=== PATIENT | male | born 1980 | race African-American/Black ===

== ENCOUNTER 2017-12-11 03:36 | Inpatient (IN) ==
[2017-12-11] MEDS ORDERED: ALUM/MAG/SIMETH/LIDO VISC 1:1 30 ML BOTTLE PO ONE (05:36)
[2017-12-11] MEDS ORDERED: ALUM/MAG/SIMETH/LIDO VISC 1:1 30 ML BOTTLE PO STA (05:39)
[2017-12-11 05:40] LABS: Basophils % 0.1 % (0.0-0.8); Eosinophils % 0.1 % (0.00-10.9); Hematocrit 39.9 VOL% (42.0-52.0); Immature Granulocytes % 0.5 %; Immature Granulocytes Absolute 0.05 #; Lymphocytes # 1.9 10*3/uL (1.4-4.0); Lymphocytes % 17.1 % (21.2-54.2); Mean Corpuscular HGB Conc 32.6 GM/DL (32-36); Mean Corpuscular Hemoglobin 30 PG (27-34); Mean Corpuscular Volume 92.8 FL (87-102); Mean Platelet Volume 9.9 FL (9.6-12.0); Monocytes # 1.1 10*3/uL (0.11-0.8); Monocytes % 9.7 % (1.7-12.7); Neutrophils % 72.5 % (38.7-73.9); Platelet Count 253 T/CUMM (130-400); Red Cell Distribution Width 13.4 % (9.3-17.3)
[2017-12-11 05:55] LABS: Apearance,Urine Slightly Hazy (Clear); Bacteria,Urine Occasional /HPF (Few); Bilirubin,Urine Negative (Negative); Blood, Urine Negative (Negative); Glucose,Urine (UA) Negative (Negative); Hyaline Casts,Urine 81 /LPF (0-3); Ketones,Urine 5 mg/dL (Negative); Mucus,Urine Many /LPF (Occasional); Nitrite,Urine Negative (Negative); Protein,Urine 100 MG/DL; RBC,Urine 5 /HPF (0-4); Urine Color Yellow (Yellow); Urine Specific Gravity 1.025 (1.001-1.035); WBC,Urine 14 /HPF (0-6)
[2017-12-11 06:03] LABS: Albumin 3.2 G/DL (3.4-5.0); Bilirubin,Total 0.6 MG/DL (0.2-1.0); Calcium 8.7 MG/DL (8.5-10.1); Osmolality,Calculated 279.4 MOS/KG (273-304); Potassium 4.6 MMOL/L (3.5-5.1); Total Protein 6.4 G/DL (6.4-8.3); Troponin I Only 0.701 NG/ML (0.00-0.045)
[2017-12-11] MEDS ORDERED: SODIUM CHLORIDE 0.9% 1,000 ML IV SCH (08:30)
[2017-12-11] MEDS ORDERED: chlordiazePOXIDE 25 MG CAPSULE PO PRN (09:09)
[2017-12-11 09:13] LABS: Barbiturates Screen,Urine Negative (Negative); Benzodiazepines Screen,Urine Negative (Negative); Cannabinoid Screen,Urine Negative (Negative); Opiate Screen,Urine Negative (Negative); Phencyclidine Screen,Urine Negative (Negative)
[2017-12-11 09:43] LABS: Hepatitis A Ab IgM Quant 0.09 Index; Hepatitis A Ab IgM Result Negative (Negative); Hepatitis B Core IgM Quant 0.18 Index; Hepatitis B Core IgM Result Negative (Negative); Hepatitis B Surface Ag Quant < 0.10 Index; Hepatitis B Surface Ag Result Negative (Negative); Hepatitis C Virus Ab Quant 0.04 Index; Hepatitis C Virus Ab Result Negative (Negative)
[2017-12-11] MEDS ORDERED: PANTOPRAZOLE 40 MG TABLET PO ONE (12:07)
[2017-12-11] MEDS: PANTOPRAZOLE 40 MG TABLET PO SCH (12:08)
[2017-12-11] MEDS: THIAMINE 100 MG TABLET PO SCH (12:09)
[2017-12-11] MEDS: FOLIC ACID 1 MG TABLET PO SCH (12:09)
[2017-12-11] MEDS: MULTIVITAMIN (CENTRUM) TABLET PO SCH (12:10)
[2017-12-11 13:17] LABS: Troponin I Only 0.797 NG/ML (0.00-0.045)
[2017-12-11] MEDS ORDERED: MAGNESIUM SULF RIDER 2 GM in PREMIX 1 EACH IV PRN (17:55)
[2017-12-11] MEDS ORDERED: POTASSIUM CHLORIDE RIDER 10 MEQ in PREMIX 1 EACH IV PRN (17:55)
[2017-12-11] MEDS ORDERED: DIAZEPAM 5 MG TABLET PO ONE (17:55)
[2017-12-11] MEDS ORDERED: diphenhydrAMINE CAP 25 MG CAPSULE PO ONE (17:55)
[2017-12-11] MEDS: ASPIRIN CHEW 81 MG TABLET PO SCH (18:15)
[2017-12-11] MEDS: FUROSEMIDE 40 MG/4 ML VIAL IV SCH (18:15)
[2017-12-11 19:22] LABS: Troponin I Only 0.605 NG/ML (0.00-0.045)
[2017-12-11] MEDS: METOPROLOL TARTRATE 25 MG TABLET PO SCH (20:36)
[2017-12-11] MEDS: chlordiazePOXIDE 25 MG CAPSULE PO SCH (20:36)
[2017-12-11] MEDS: ALUMINUM/MAGNES/SIMETH MAX STR 30 ML UDCUP PO PRN (23:36)
[2017-12-11] MEDS: MORPHINE 2 MG/1 ML SYRINGE IV PRN (23:37)
[2017-12-12] MEDS ORDERED: diphenhydrAMINE CAP 25 MG CAPSULE PO ONE (06:00)
[2017-12-12] MEDS ORDERED: DIAZEPAM 5 MG TABLET PO ONE (06:00)
[2017-12-12 06:30] LABS: Basophils % 0.1 % (0.0-0.8); Eosinophils % 0.3 % (0.00-10.9); Hemoglobin 12.4 GM/DL (14.0-18.0); Immature Granulocytes % 0.3 %; Immature Granulocytes Absolute 0.02 #; Lymphocytes # 1.7 10*3/uL (1.4-4.0); Lymphocytes % 24.4 % (21.2-54.2); Mean Corpuscular HGB Conc 32.6 GM/DL (32-36); Mean Corpuscular Hemoglobin 30 PG (27-34); Mean Corpuscular Volume 91.1 FL (87-102); Mean Platelet Volume 10.5 FL (9.6-12.0); Monocytes # 0.8 10*3/uL (0.11-0.8); Monocytes % 11.2 % (1.7-12.7); Neutrophils # 4.4 10*3/uL (1.4-7.4); Neutrophils % 63.7 % (38.7-73.9); Platelet Count 241 T/CUMM (130-400); Red Blood Count 4.17 MC/CUMM (3.8-5.5); Red Cell Distribution Width 13.5 % (9.3-17.3); White Blood Count 6.9 T/CUMM (4-12)
[2017-12-12 07:01] LABS: Calcium 8.7 MG/DL (8.5-10.1); Osmolality,Calculated 278.5 MOS/KG (273-304); Potassium 4.1 MMOL/L (3.5-5.1)
[2017-12-12] MEDS ORDERED: HEPARIN/NACL 0.9% 2 UNITS/ML 2,000 ML IV ONE (08:24)
[2017-12-12] MEDS ORDERED: LIDOCAINE 1% 20 ML VIAL ONE (08:24)
[2017-12-12] MEDS ORDERED: fentaNYL 100 MCG/2 ML VIAL ONE (08:45)
[2017-12-12] MEDS ORDERED: VERAPAMIL 5 MG/2 ML VIAL ONE (08:45)
[2017-12-12] MEDS ORDERED: NITROGLYCERIN DRIP 50 MG/250 ML BOTTLE IV ONE (08:45)
[2017-12-12] MEDS ORDERED: MIDAZOLAM 2 MG/2 ML VIAL ONE (08:45)
[2017-12-12] MEDS ORDERED: ENOXAPARIN 60 MG/0.6 ML SYRINGE ONE (09:00)
[2017-12-12] MEDS: ASPIRIN CHEW 81 MG TABLET PO SCH (13:28)
[2017-12-12] MEDS: FUROSEMIDE 40 MG/4 ML VIAL IV SCH ×2 (13:28→15:28)
[2017-12-12] MEDS: MULTIVITAMIN (CENTRUM) TABLET PO SCH (13:29)
[2017-12-12] MEDS: chlordiazePOXIDE 25 MG CAPSULE PO SCH ×3 (13:30→21:41)
[2017-12-12] MEDS: FOLIC ACID 1 MG TABLET PO SCH (13:30)
[2017-12-12] MEDS: METOPROLOL TARTRATE 25 MG TABLET PO SCH ×2 (13:31→21:40)
[2017-12-12] MEDS: PANTOPRAZOLE 40 MG TABLET PO SCH (13:31)
[2017-12-12] MEDS: THIAMINE 100 MG TABLET PO SCH (13:31)
[2017-12-12] MEDS: ONDANSETRON 4 MG/2 ML VIAL IV PRN (15:29)
[2017-12-12] MEDS ORDERED: ALBUTEROL 2.5 MG/3 ML NEB RESP TX PRN (23:25)
[2017-12-13 05:19] LABS: Basophils % 0.3 % (0.0-0.8); Eosinophils % 0.2 % (0.00-10.9); Hematocrit 39.5 VOL% (42.0-52.0); Hemoglobin 12.6 GM/DL (14.0-18.0); Immature Granulocytes % 0.6 %; Immature Granulocytes Absolute 0.05 #; Lymphocytes # 2.2 10*3/uL (1.4-4.0); Lymphocytes % 25.6 % (21.2-54.2); Mean Corpuscular HGB Conc 31.9 GM/DL (32-36); Mean Corpuscular Hemoglobin 29 PG (27-34); Mean Corpuscular Volume 91.4 FL (87-102); Mean Platelet Volume 10.4 FL (9.6-12.0); Monocytes % 11.5 % (1.7-12.7); NRBC # 0.05 10*3/uL; Neutrophils # 5.4 10*3/uL (1.4-7.4); Neutrophils % 61.8 % (38.7-73.9); Platelet Count 234 T/CUMM (130-400); Red Blood Count 4.32 MC/CUMM (3.8-5.5); Red Cell Distribution Width 13.2 % (9.3-17.3); White Blood Count 8.8 T/CUMM (4-12)
[2017-12-13 05:44] LABS: Calcium 8.5 MG/DL (8.5-10.1); Osmolality,Calculated 273.8 MOS/KG (273-304); Potassium 4.2 MMOL/L (3.5-5.1)
[2017-12-13] MEDS: MULTIVITAMIN (CENTRUM) TABLET PO SCH (09:20)
[2017-12-13] MEDS: THIAMINE 100 MG TABLET PO SCH (09:21)
[2017-12-13] MEDS: METOPROLOL TARTRATE 25 MG TABLET PO SCH (09:21)
[2017-12-13] MEDS: FOLIC ACID 1 MG TABLET PO SCH (09:22)
[2017-12-13] MEDS: chlordiazePOXIDE 25 MG CAPSULE PO SCH (09:22)
[2017-12-13] MEDS: PANTOPRAZOLE 40 MG TABLET PO SCH (09:22)
[2017-12-13] MEDS: ASPIRIN CHEW 81 MG TABLET PO SCH (09:23)
[2017-12-13] MEDS: FUROSEMIDE 40 MG/4 ML VIAL IV SCH ×2 (09:24→16:11)
[2017-12-13] MEDS ORDERED: chlorproMAZINE 25 MG TABLET PO SCH (12:00)
[2017-12-13] MEDS: ONDANSETRON 4 MG/2 ML VIAL IV PRN (14:32)
[2017-12-13] MEDS: ASPIRIN CHEW 81 MG TABLET PO ONE ×2 (14:48→15:17)
[2017-12-13] MEDS ORDERED: SPIRONOLACTONE 25 MG TABLET PO SCH (15:00)
[2017-12-13] MEDS ORDERED: LISINOPRIL 2.5 MG TABLET PO SCH (15:00)
[2017-12-13] MEDS ORDERED: MORPHINE 2 MG/1 ML SYRINGE IV STA (15:15)
[2017-12-13 15:56] LABS: ABG Base Excess -1.5 MMOL/L (-2.5-2.5); ABG HCO3 21.8 MMOL/L (20-26); ABG Oxygen Saturation 98.6 % (95-100); ABG PCO2 32.8 MM HG (35-48); ABG PH 7.441 (7.35-7.45); ABG TCO2 22.8 MMOL/L (23-27); Allen Test Positive
[2017-12-13] MEDS: LORazepam 2 MG/1 ML VIAL IV PRN ×3 (16:00→23:31)
[2017-12-13] MEDS: chlordiazePOXIDE 10 MG CAPSULE PO SCH ×2 (16:11→20:47)
[2017-12-13] MEDS: METOPROLOL SUCCINATE XL 25 MG TABLET PO SCH ×2 (16:38→20:49)
[2017-12-13] MEDS: MORPHINE 2 MG/1 ML SYRINGE IV PRN (20:47)
[2017-12-14] MEDS: LORazepam 2 MG/1 ML VIAL IV PRN ×6 (04:44→21:00)
[2017-12-14] MEDS ORDERED: DIAZEPAM 10 MG/2 ML SYRINGE IV PRN (05:05)
[2017-12-14] MEDS: HALOPERIDOL 5 MG/ML AMP IV PRN ×2 (05:57→14:58)
[2017-12-14 05:59] LABS: Basophils % 0.3 % (0.0-0.8); Eosinophils % 0.2 % (0.00-10.9); Hematocrit 40.8 VOL% (42.0-52.0); Hemoglobin 13.1 GM/DL (14.0-18.0); Immature Granulocytes % 0.6 %; Immature Granulocytes Absolute 0.07 #; Lymphocytes # 1.4 10*3/uL (1.4-4.0); Lymphocytes % 11.5 % (21.2-54.2); Mean Corpuscular HGB Conc 32.1 GM/DL (32-36); Mean Corpuscular Hemoglobin 30 PG (27-34); Mean Corpuscular Volume 92.5 FL (87-102); Mean Platelet Volume 10.6 FL (9.6-12.0); Monocytes # 1.5 10*3/uL (0.11-0.8); Monocytes % 12.2 % (1.7-12.7); NRBC # 0.08 10*3/uL; Neutrophils % 75.2 % (38.7-73.9); Platelet Count 221 T/CUMM (130-400); Red Blood Count 4.41 MC/CUMM (3.8-5.5); Red Cell Distribution Width 13.2 % (9.3-17.3)
[2017-12-14 06:11] LABS: Calcium 8.3 MG/DL (8.5-10.1); Potassium 4.4 MMOL/L (3.5-5.1)
[2017-12-14 06:21] LABS: Albumin 2.9 G/DL (3.4-5.0); Bilirubin,Direct 0.77 MG/DL (0.0-0.20); Bilirubin,Indirect 0.9 MG/DL (0.0-1.0); Bilirubin,Total 1.7 MG/DL (0.2-1.0); Total Protein 5.9 G/DL (6.4-8.3)
[2017-12-14] MEDS: FUROSEMIDE 40 MG/4 ML VIAL IV SCH ×3 (08:21→15:06)
[2017-12-14] MEDS: THIAMINE 100 MG TABLET PO SCH (08:21)
[2017-12-14] MEDS: PANTOPRAZOLE 40 MG TABLET PO SCH (08:21)
[2017-12-14] MEDS: FOLIC ACID 1 MG TABLET PO SCH (08:21)
[2017-12-14] MEDS: METOPROLOL SUCCINATE XL 25 MG TABLET PO SCH ×2 (08:21→21:45)
[2017-12-14] MEDS: MULTIVITAMIN (CENTRUM) TABLET PO SCH (08:21)
[2017-12-14] MEDS: chlordiazePOXIDE 25 MG CAPSULE PO SCH ×3 (08:24→21:45)
[2017-12-14] MEDS: LACTULOSE 20 GM/30 ML UDCUP PO SCH ×2 (11:20→17:00)
[2017-12-14] MEDS ORDERED: ETOMIDATE 20 MG/10 ML VIAL IV ONE ×2 (19:30)
[2017-12-14] MEDS ORDERED: VECURONIUM 10 MG VIAL IV ONE ×2 (19:30)
[2017-12-14] MEDS ORDERED: PROPOFOL 200 MG/20 ML VIAL IV ONE (19:38)
[2017-12-14] MEDS ORDERED: ALBUTEROL/IPRATROPIUM 3 ML NEB RESP TX PRN (19:58)
[2017-12-14] MEDS: MIDAZOLAM 100 MG in SODIUM CHLORIDE 0.9% 80 ML IV SCH (20:55)
[2017-12-14] MEDS: fentaNYL INJ 1,250 MCG in SODIUM CHLORIDE 0.9% 225 ML IV SCH (20:55)
[2017-12-14] MEDS ORDERED: THIAMINE INJ 100 MG, FOLIC ACID INJ 1 MG, MULTIVITAMIN INJ 10 ML in SODIUM CHLORIDE 0.9... IV ONE (21:00)
[2017-12-14 21:50] LABS: Lactic Acid 1.4 MMOL/L (0.4-2.0)
[2017-12-14 21:58] LABS: Basophils % 0.1 % (0.0-0.8); Eosinophils # 0.1 10*3/uL (0.0-0.87); Eosinophils % 0.5 % (0.00-10.9); Hematocrit 36.9 VOL% (42.0-52.0); Hemoglobin 12.1 GM/DL (14.0-18.0); Immature Granulocytes % 0.5 %; Immature Granulocytes Absolute 0.06 #; Lymphocytes # 1.4 10*3/uL (1.4-4.0); Lymphocytes % 13.1 % (21.2-54.2); Mean Corpuscular HGB Conc 32.8 GM/DL (32-36); Mean Corpuscular Hemoglobin 30 PG (27-34); Mean Corpuscular Volume 90.9 FL (87-102); Mean Platelet Volume 10.1 FL (9.6-12.0); Monocytes # 1.3 10*3/uL (0.11-0.8); Monocytes % 12.2 % (1.7-12.7); NRBC # 0.05 10*3/uL; Neutrophils # 8.1 10*3/uL (1.4-7.4); Neutrophils % 73.6 % (38.7-73.9); Platelet Count 169 T/CUMM (130-400); Red Blood Count 4.06 MC/CUMM (3.8-5.5); Red Cell Distribution Width 13.4 % (9.3-17.3)
[2017-12-14] MEDS: CIPROFLOXACIN INJ 400 MG in PREMIX 1 EACH IV SCH (22:33)
[2017-12-14] MEDS: cefTRIAXone 1,000 MG in SYRINGE 1 EACH IV SCH (22:33)
[2017-12-14] MEDS: PROPOFOL 1,000 MG/100 ML BOTTLE IV SCH (22:34)
[2017-12-14 22:35] LABS: Osmolality,Calculated 276.8 MOS/KG (273-304); Potassium 4.4 MMOL/L (3.5-5.1)
[2017-12-14 23:24] LABS: Apearance,Urine Slightly Hazy (Clear); Bilirubin,Urine Negative (Negative); Blood, Urine Moderate mg/dL (Negative); Glucose,Urine (UA) Negative (Negative); Hyaline Casts,Urine 31 /LPF (0-3); Ketones,Urine Negative (Negative); Mucus,Urine Occasional /LPF (Occasional); Nitrite,Urine Negative (Negative); Protein,Urine 100 MG/DL; RBC,Urine 26 /HPF (0-4); Squamous Epithelial Cell,Urine Occasional /HPF (0-10); Urine Color Amber (Yellow); Urine Specific Gravity 1.015 (1.001-1.035); WBC,Urine 10 /HPF (0-6)
[2017-12-15] MEDS: LACTULOSE 20 GM/30 ML UDCUP PO SCH ×5 (00:14→23:30)
[2017-12-15 01:32] LABS: Pt O2 Delivery Device Ventilator
[2017-12-15 01:33] LABS: ABG Base Excess 2.6 MMOL/L (-2.5-2.5); ABG HCO3 26.8 MMOL/L (20-26); ABG PCO2 32.9 MM HG (35-48); ABG PH 7.496 (7.35-7.45); ABG TCO2 22.4 MMOL/L (23-27)
[2017-12-15] MEDS: ALBUTEROL/IPRATROPIUM 3 ML NEB RESP TX SCH ×4 (01:36→19:20)
[2017-12-15] MEDS: fentaNYL INJ 1,250 MCG in SODIUM CHLORIDE 0.9% 225 ML IV SCH ×2 (02:46→20:35)
[2017-12-15 04:26] LABS: ABG Base Excess 1.5 MMOL/L (-2.5-2.5); ABG HCO3 25.8 MMOL/L (20-26); ABG TCO2 23.4 MMOL/L (23-27); Allen Test Positive; Pt O2 Delivery Device Ventilator
[2017-12-15 04:28] LABS: ABG Oxygen Saturation 99.5 % (95-100)
[2017-12-15 05:15] LABS: Basophils % 0.3 % (0.0-0.8); Eosinophils # 0.2 10*3/uL (0.0-0.87); Eosinophils % 1.5 % (0.00-10.9); Hematocrit 37.8 VOL% (42.0-52.0); Hemoglobin 12.4 GM/DL (14.0-18.0); Immature Granulocytes % 0.5 %; Immature Granulocytes Absolute 0.06 #; Lymphocytes # 1.6 10*3/uL (1.4-4.0); Lymphocytes % 14.2 % (21.2-54.2); Mean Corpuscular HGB Conc 32.8 GM/DL (32-36); Mean Corpuscular Hemoglobin 30 PG (27-34); Mean Corpuscular Volume 91.1 FL (87-102); Mean Platelet Volume 10.4 FL (9.6-12.0); Monocytes # 1.4 10*3/uL (0.11-0.8); Monocytes % 12.2 % (1.7-12.7); Neutrophils # 7.9 10*3/uL (1.4-7.4); Neutrophils % 71.3 % (38.7-73.9); Platelet Count 170 T/CUMM (130-400); Red Blood Count 4.15 MC/CUMM (3.8-5.5); Red Cell Distribution Width 13.4 % (9.3-17.3)
[2017-12-15 06:10] LABS: Albumin 2.5 G/DL (3.4-5.0); Bilirubin,Direct 0.71 MG/DL (0.0-0.20); Bilirubin,Indirect 0.9 MG/DL (0.0-1.0); Bilirubin,Total 1.6 MG/DL (0.2-1.0); Calcium 7.4 MG/DL (8.5-10.1); Osmolality,Calculated 277.5 MOS/KG (273-304); Potassium 4.4 MMOL/L (3.5-5.1)
[2017-12-15] MEDS: MIDAZOLAM 100 MG in SODIUM CHLORIDE 0.9% 80 ML IV SCH ×3 (06:31→20:35)
[2017-12-15] MEDS ORDERED: FUROSEMIDE 20 MG/2 ML VIAL ONE (09:23)
[2017-12-15] MEDS: cefTRIAXone 1,000 MG in SYRINGE 1 EACH IV SCH ×2 (09:33→20:24)
[2017-12-15] MEDS: FUROSEMIDE 40 MG/4 ML VIAL IV SCH ×2 (09:34→15:13)
[2017-12-15] MEDS: METOPROLOL SUCCINATE XL 25 MG TABLET PO SCH ×2 (09:35→20:13)
[2017-12-15] MEDS: PANTOPRAZOLE 40 MG TABLET PO SCH (09:35)
[2017-12-15] MEDS: chlordiazePOXIDE 25 MG CAPSULE PO SCH ×3 (09:35→20:25)
[2017-12-15] MEDS: CIPROFLOXACIN INJ 400 MG in PREMIX 1 EACH IV SCH ×2 (11:46→20:26)
[2017-12-15] MEDS ORDERED: DEXTROSE 10% 1,000 ML IV SCH (12:00)
[2017-12-15] MEDS: ENOXAPARIN 40 MG/0.4 ML SYRINGE SUBCUT SCH (15:14)
[2017-12-15] MEDS: PANTOPRAZOLE 40 MG VIAL IV SCH (15:14)
[2017-12-15] MEDS: ASPIRIN CHEW 81 MG TABLET PO SCH (15:14)
[2017-12-15] MEDS ORDERED: GLUCAGON 1 MG VIAL IM PRN (15:16)
[2017-12-15] MEDS ORDERED: DEXTROSE 50% 25 GM/50 ML VIAL IV PRN (15:16)
[2017-12-15] MEDS: INSULIN REGULAR 100 UNIT/ML SUBCUT SCH (17:08)
[2017-12-15] MEDS: SODIUM CHLORIDE 0.9% 1,000 ML IV SCH (20:24)
[2017-12-15] MEDS ORDERED: CALCIUM GLUCONATE 2,000 MG in SODIUM CHLORIDE 0.9% 100 ML IV ONE (21:00)
[2017-12-15] MEDS: PROPOFOL 1,000 MG/100 ML BOTTLE IV SCH (22:00)
[2017-12-16] MEDS: ALBUTEROL/IPRATROPIUM 3 ML NEB RESP TX SCH ×4 (00:06→20:49)
[2017-12-16] MEDS: INSULIN REGULAR 100 UNIT/ML SUBCUT SCH ×4 (02:25→18:31)
[2017-12-16] MEDS: MIDAZOLAM 100 MG in SODIUM CHLORIDE 0.9% 80 ML IV SCH ×3 (03:16→21:04)
[2017-12-16] MEDS: fentaNYL INJ 1,250 MCG in SODIUM CHLORIDE 0.9% 225 ML IV SCH ×2 (03:19→21:04)
[2017-12-16 03:21] LABS: Allen Test Positive; Pt O2 Delivery Device Ventilator
[2017-12-16 03:44] LABS: ABG Oxygen Saturation 98.8 % (95-100); ABG PCO2 38.7 MM HG (35-48); ABG PH 7.445 (7.35-7.45); ABG PO2 126.7 MM HG (80-95); ABG TCO2 27.2 MMOL/L (23-27)
[2017-12-16 04:44] LABS: Basophils % 0.2 % (0.0-0.8); Eosinophils # 0.1 10*3/uL (0.0-0.87); Eosinophils % 0.5 % (0.00-10.9); Hematocrit 40.5 VOL% (42.0-52.0); Hemoglobin 13.2 GM/DL (14.0-18.0); Immature Granulocytes % 0.8 %; Lymphocytes # 1.1 10*3/uL (1.4-4.0); Lymphocytes % 8.6 % (21.2-54.2); Mean Corpuscular HGB Conc 32.6 GM/DL (32-36); Mean Corpuscular Hemoglobin 30 PG (27-34); Mean Corpuscular Volume 91.2 FL (87-102); Mean Platelet Volume 10.3 FL (9.6-12.0); Monocytes # 2.1 10*3/uL (0.11-0.8); Monocytes % 16.9 % (1.7-12.7); NRBC # 0.03 10*3/uL; Platelet Count 165 T/CUMM (130-400); Red Blood Count 4.44 MC/CUMM (3.8-5.5); Red Cell Distribution Width 13.6 % (9.3-17.3); White Blood Count 12.3 T/CUMM (4-12)
[2017-12-16 05:09] LABS: Calcium 8.1 MG/DL (8.5-10.1); Osmolality,Calculated 275.7 MOS/KG (273-304); Potassium 4.9 MMOL/L (3.5-5.1)
[2017-12-16 05:22] LABS: Band Neutrophils 2 % (0-10); Eosinophils 1 % (0-10); Lymphocytes 10 % (20-55); Platelet Estimate Adequate; Segmented Neutrophils 77 % (50-85); Total Cells Counted 100
[2017-12-16 05:23] LABS: Burr Cells Slight
[2017-12-16 05:24] LABS: Polychromasia Slight
[2017-12-16 06:03] LABS: Prealbumin 7.5 MG/DL (20-40)
[2017-12-16] MEDS: LACTULOSE 20 GM/30 ML UDCUP PO SCH ×3 (06:41→18:31)
[2017-12-16] MEDS ORDERED: FUROSEMIDE 20 MG/2 ML VIAL ONE (09:54)
[2017-12-16] MEDS: CIPROFLOXACIN INJ 400 MG in PREMIX 1 EACH IV SCH ×2 (10:05→20:59)
[2017-12-16] MEDS: cefTRIAXone 1,000 MG in SYRINGE 1 EACH IV SCH ×2 (10:05→20:56)
[2017-12-16] MEDS: chlordiazePOXIDE 25 MG CAPSULE PO SCH ×3 (10:05→20:57)
[2017-12-16] MEDS: PANTOPRAZOLE 40 MG VIAL IV SCH (10:06)
[2017-12-16] MEDS: FUROSEMIDE 40 MG/4 ML VIAL IV SCH ×2 (10:06→18:30)
[2017-12-16] MEDS: ASPIRIN CHEW 81 MG TABLET PO SCH (10:06)
[2017-12-16] MEDS: METOPROLOL SUCCINATE XL 25 MG TABLET PO SCH (10:20)
[2017-12-16] MEDS: ENOXAPARIN 40 MG/0.4 ML SYRINGE SUBCUT SCH (13:49)
[2017-12-16] MEDS: SODIUM CHLORIDE 0.9% 1,000 ML IV SCH (16:35)
[2017-12-16] MEDS: METOPROLOL TARTRATE 25 MG TABLET PO SCH ×2 (18:31→20:57)
[2017-12-16] MEDS ORDERED: METOPROLOL SUCCINATE XL 25 MG TABLET PO SCH (21:00)
[2017-12-17] MEDS: PROPOFOL 1,000 MG/100 ML BOTTLE IV SCH ×2 (00:42→22:00)
[2017-12-17] MEDS: INSULIN REGULAR 100 UNIT/ML SUBCUT SCH ×5 (00:42→23:19)
[2017-12-17] MEDS: LACTULOSE 20 GM/30 ML UDCUP PO SCH ×5 (00:44→23:54)
[2017-12-17] MEDS: ALBUTEROL/IPRATROPIUM 3 ML NEB RESP TX SCH ×4 (01:24→19:50)
[2017-12-17 04:06] LABS: ABG Base Excess 2.5 MMOL/L (-2.5-2.5); ABG Oxygen Saturation 99.1 % (95-100); ABG PCO2 36.3 MM HG (35-48); ABG PH 7.473 (7.35-7.45); ABG PO2 151.7 MM HG (80-95); ABG TCO2 27.1 MMOL/L (23-27)
[2017-12-17 04:53] LABS: Basophils % 0.1 % (0.0-0.8); Hematocrit 39.6 VOL% (42.0-52.0); Hemoglobin 12.3 GM/DL (14.0-18.0); Immature Granulocytes % 0.8 %; Immature Granulocytes Absolute 0.12 #; Lymphocytes # 0.8 10*3/uL (1.4-4.0); Lymphocytes % 5.1 % (21.2-54.2); Mean Corpuscular HGB Conc 31.1 GM/DL (32-36); Mean Corpuscular Hemoglobin 29 PG (27-34); Mean Corpuscular Volume 93.6 FL (87-102); Mean Platelet Volume 10.1 FL (9.6-12.0); Monocytes # 2.2 10*3/uL (0.11-0.8); Monocytes % 15.3 % (1.7-12.7); NRBC # 0.04 10*3/uL; Neutrophils # 11.5 10*3/uL (1.4-7.4); Neutrophils % 78.7 % (38.7-73.9); Platelet Count 171 T/CUMM (130-400); Red Blood Count 4.23 MC/CUMM (3.8-5.5); Red Cell Distribution Width 13.8 % (9.3-17.3); White Blood Count 14.6 T/CUMM (4-12)
[2017-12-17] MEDS: fentaNYL INJ 1,250 MCG in SODIUM CHLORIDE 0.9% 225 ML IV SCH ×2 (05:08→21:23)
[2017-12-17 05:23] LABS: Calcium 7.3 MG/DL (8.5-10.1); Osmolality,Calculated 278.8 MOS/KG (273-304); Potassium 4.5 MMOL/L (3.5-5.1)
[2017-12-17] MEDS: MIDAZOLAM 100 MG in SODIUM CHLORIDE 0.9% 80 ML IV SCH ×3 (06:55→23:55)
[2017-12-17] MEDS: cefTRIAXone 1,000 MG in SYRINGE 1 EACH IV SCH ×2 (08:07→21:15)
[2017-12-17] MEDS: chlordiazePOXIDE 25 MG CAPSULE PO SCH ×3 (08:07→21:15)
[2017-12-17] MEDS: FUROSEMIDE 40 MG/4 ML VIAL IV SCH ×3 (08:07→17:22)
[2017-12-17] MEDS: PANTOPRAZOLE 40 MG VIAL IV SCH (08:08)
[2017-12-17] MEDS: METOPROLOL TARTRATE 25 MG TABLET PO SCH ×2 (08:08→21:15)
[2017-12-17] MEDS: ASPIRIN CHEW 81 MG TABLET PO SCH (08:08)
[2017-12-17] MEDS: CIPROFLOXACIN INJ 400 MG in PREMIX 1 EACH IV SCH ×2 (08:09→21:15)
[2017-12-17] MEDS: SODIUM CHLORIDE 0.9% 1,000 ML IV SCH ×2 (11:00→17:56)
[2017-12-17] MEDS: ENOXAPARIN 40 MG/0.4 ML SYRINGE SUBCUT SCH (13:03)
[2017-12-17] MEDS ORDERED: FUROSEMIDE 40 MG/4 ML VIAL IV SCH (15:17)
[2017-12-17] MEDS ORDERED: FUROSEMIDE 20 MG/2 ML VIAL ONE (16:19)
[2017-12-18] MEDS: fentaNYL INJ 1,250 MCG in SODIUM CHLORIDE 0.9% 225 ML IV SCH (00:57)
[2017-12-18] MEDS: ALBUTEROL/IPRATROPIUM 3 ML NEB RESP TX SCH ×4 (02:06→19:27)
[2017-12-18 04:58] LABS: ABG Base Excess 1.6 MMOL/L (-2.5-2.5); ABG HCO3 25.9 MMOL/L (20-26); ABG Oxygen Saturation 99.4 % (95-100); ABG PCO2 41.6 MM HG (35-48); ABG TCO2 23.4 MMOL/L (23-27); Allen Test Positive; Pt O2 Delivery Device Ventilator
[2017-12-18] MEDS: INSULIN REGULAR 100 UNIT/ML SUBCUT SCH ×4 (05:32→23:30)
[2017-12-18] MEDS: LACTULOSE 20 GM/30 ML UDCUP PO SCH ×3 (05:33→17:27)
[2017-12-18 05:44] LABS: Basophils % 0.2 % (0.0-0.8); Eosinophils % 0.1 % (0.00-10.9); Hematocrit 39.7 VOL% (42.0-52.0); Hemoglobin 12.2 GM/DL (14.0-18.0); Immature Granulocytes Absolute 0.19 #; Lymphocytes # 1.6 10*3/uL (1.4-4.0); Lymphocytes % 8.3 % (21.2-54.2); Mean Corpuscular HGB Conc 30.7 GM/DL (32-36); Mean Corpuscular Hemoglobin 29 PG (27-34); Mean Corpuscular Volume 93.6 FL (87-102); Mean Platelet Volume 10.3 FL (9.6-12.0); Monocytes # 2.8 10*3/uL (0.11-0.8); Monocytes % 14.8 % (1.7-12.7); NRBC # 0.09 10*3/uL; Neutrophils # 14.1 10*3/uL (1.4-7.4); Neutrophils % 75.6 % (38.7-73.9); Platelet Count 173 T/CUMM (130-400); Red Blood Count 4.24 MC/CUMM (3.8-5.5); Red Cell Distribution Width 14.3 % (9.3-17.3); White Blood Count 18.6 T/CUMM (4-12)
[2017-12-18 06:03] LABS: Calcium 7.7 MG/DL (8.5-10.1); Osmolality,Calculated 280.1 MOS/KG (273-304); Potassium 5.2 MMOL/L (3.5-5.1)
[2017-12-18] MEDS: CIPROFLOXACIN INJ 400 MG in PREMIX 1 EACH IV SCH (08:07)
[2017-12-18] MEDS: FUROSEMIDE 40 MG/4 ML VIAL IV SCH (08:10)
[2017-12-18] MEDS: METOPROLOL TARTRATE 25 MG TABLET PO SCH ×2 (08:10→20:19)
[2017-12-18] MEDS: cefTRIAXone 1,000 MG in SYRINGE 1 EACH IV SCH ×2 (08:10→20:19)
[2017-12-18] MEDS: chlordiazePOXIDE 25 MG CAPSULE PO SCH ×3 (08:10→20:19)
[2017-12-18] MEDS: ASPIRIN CHEW 81 MG TABLET PO SCH (08:10)
[2017-12-18] MEDS: PANTOPRAZOLE 40 MG VIAL IV SCH (08:10)
[2017-12-18] MEDS: SODIUM CHLORIDE 0.9% 1,000 ML IV SCH ×2 (08:21→17:31)
[2017-12-18] MEDS: ENOXAPARIN 40 MG/0.4 ML SYRINGE SUBCUT SCH (13:34)
[2017-12-18] MEDS: ALUMINUM/MAGNES/SIMETH MAX STR 30 ML UDCUP PO PRN (14:45)
[2017-12-18] MEDS ORDERED: CIPROFLOXACIN INJ 400 MG in PREMIX 1 EACH IV SCH (15:00)
[2017-12-18 16:01] LABS: Apearance,Urine HAZY (Clear); Glucose,Urine (UA) Negative (Negative); Ketones,Urine Negative (Negative); Nitrite,Urine Negative (Negative); Protein,Urine 30 MG/DL; Urine Color Yellow (Yellow)
[2017-12-18 16:02] LABS: Bacteria,Urine Rare /HPF (Few); Bilirubin,Urine 4 mg/dL (Negative); Blood, Urine Large mg/dL (Negative); RBC,Urine 25-30 /HPF (0-4); Squamous Epithelial Cell,Urine Few /HPF (0-10); WBC,Urine 0-3 /HPF (0-6)
[2017-12-18 16:03] LABS: Mucus,Urine TRACE /LPF (Occasional)
[2017-12-18] MEDS: MIDAZOLAM 100 MG in SODIUM CHLORIDE 0.9% 80 ML IV SCH (17:16)
[2017-12-18] MEDS: PROPOFOL 1,000 MG/100 ML BOTTLE IV SCH (23:30)
[2017-12-19] MEDS: fentaNYL INJ 1,250 MCG in SODIUM CHLORIDE 0.9% 225 ML IV SCH ×3 (00:25→20:39)
[2017-12-19] MEDS: ALBUTEROL/IPRATROPIUM 3 ML NEB RESP TX SCH ×4 (00:56→18:25)
[2017-12-19] MEDS: LACTULOSE 20 GM/30 ML UDCUP PO SCH ×4 (01:01→18:45)
[2017-12-19] MEDS: MIDAZOLAM 100 MG in SODIUM CHLORIDE 0.9% 80 ML IV SCH ×3 (03:18→20:39)
[2017-12-19 05:18] LABS: Basophils % 0.1 % (0.0-0.8); Hematocrit 36.9 VOL% (42.0-52.0); Immature Granulocytes % 0.9 %; Immature Granulocytes Absolute 0.13 #; Lymphocytes # 1.6 10*3/uL (1.4-4.0); Lymphocytes % 11.3 % (21.2-54.2); Mean Corpuscular HGB Conc 32.5 GM/DL (32-36); Mean Corpuscular Hemoglobin 30 PG (27-34); Mean Corpuscular Volume 90.7 FL (87-102); Monocytes # 1.7 10*3/uL (0.11-0.8); Monocytes % 12.2 % (1.7-12.7); Neutrophils # 10.3 10*3/uL (1.4-7.4); Neutrophils % 75.5 % (38.7-73.9); Platelet Count 174 T/CUMM (130-400); Red Blood Count 4.07 MC/CUMM (3.8-5.5); Red Cell Distribution Width 14.5 % (9.3-17.3); White Blood Count 13.7 T/CUMM (4-12)
[2017-12-19 05:26] LABS: ABG Base Excess -0.4 MMOL/L (-2.5-2.5); ABG HCO3 24.1 MMOL/L (20-26); ABG Oxygen Saturation 99.7 % (95-100); ABG PCO2 29.9 MM HG (35-48); ABG PH 7.478 (7.35-7.45); ABG TCO2 19.5 MMOL/L (23-27); Allen Test Positive; Pt O2 Delivery Device Ventilator
[2017-12-19] MEDS: INSULIN REGULAR 100 UNIT/ML SUBCUT SCH ×3 (05:58→19:03)
[2017-12-19 06:06] LABS: Calcium 7.2 MG/DL (8.5-10.1); Osmolality,Calculated 285.2 MOS/KG (273-304)
[2017-12-19] MEDS ORDERED: SODIUM POLYSTYRENE SULFATE 15 GM/60 ML BOTTLE PO ONE (06:12)
[2017-12-19] MEDS ORDERED: SODIUM POLYSTYRENE SULFATE 15 GM/60 ML BOTTLE PO PRN (08:24)
[2017-12-19] MEDS: PANTOPRAZOLE 40 MG VIAL IV SCH (10:04)
[2017-12-19] MEDS: ASPIRIN CHEW 81 MG TABLET PO SCH (10:05)
[2017-12-19] MEDS: cefTRIAXone 1,000 MG in SYRINGE 1 EACH IV SCH ×2 (10:05→21:22)
[2017-12-19] MEDS: METOPROLOL TARTRATE 25 MG TABLET PO SCH ×2 (10:06→21:24)
[2017-12-19] MEDS: chlordiazePOXIDE 25 MG CAPSULE PO SCH ×3 (11:19→21:24)
[2017-12-19] MEDS: SODIUM BICARB INJ 100 MEQ in DEXTROSE 5% NACL 0.45% 1,000 ML IV SCH (12:15)
[2017-12-19 12:21] LABS: Albumin 2.1 G/DL (3.4-5.0); Bilirubin,Direct 0.95 MG/DL (0.0-0.20); Bilirubin,Indirect 0.3 MG/DL (0.0-1.0); Bilirubin,Total 1.2 MG/DL (0.2-1.0); Total Protein 5.4 G/DL (6.4-8.3)
[2017-12-19] MEDS: ENOXAPARIN 40 MG/0.4 ML SYRINGE SUBCUT SCH (16:14)
[2017-12-20] MEDS: PROPOFOL 1,000 MG/100 ML BOTTLE IV SCH ×2 (00:19→23:12)
[2017-12-20] MEDS: ALBUTEROL/IPRATROPIUM 3 ML NEB RESP TX SCH ×4 (01:01→19:56)
[2017-12-20 02:49] LABS: Basophils % 0.3 % (0.0-0.8); Eosinophils % 0.2 % (0.00-10.9); Hematocrit 33.5 VOL% (42.0-52.0); Hemoglobin 11.2 GM/DL (14.0-18.0); Immature Granulocytes % 0.8 %; Immature Granulocytes Absolute 0.09 #; Lymphocytes # 1.2 10*3/uL (1.4-4.0); Lymphocytes % 10.4 % (21.2-54.2); Mean Corpuscular HGB Conc 33.4 GM/DL (32-36); Mean Corpuscular Hemoglobin 29 PG (27-34); Mean Corpuscular Volume 87.9 FL (87-102); Mean Platelet Volume 10.8 FL (9.6-12.0); Monocytes # 1.3 10*3/uL (0.11-0.8); Monocytes % 11.4 % (1.7-12.7); NRBC # 0.07 10*3/uL; Neutrophils # 8.7 10*3/uL (1.4-7.4); Neutrophils % 76.9 % (38.7-73.9); Platelet Count 159 T/CUMM (130-400); Red Blood Count 3.81 MC/CUMM (3.8-5.5); Red Cell Distribution Width 14.3 % (9.3-17.3); White Blood Count 11.3 T/CUMM (4-12)
[2017-12-20 05:30] LABS: Calcium 6.8 MG/DL (8.5-10.1); Potassium 3.9 MMOL/L (3.5-5.1)
[2017-12-20 06:09] LABS: ABG Base Excess 4.4 MMOL/L (-2.5-2.5); ABG HCO3 28.4 MMOL/L (20-26); ABG Oxygen Saturation 99.8 % (95-100); ABG PCO2 36.9 MM HG (35-48); ABG PH 7.485 (7.35-7.45); ABG TCO2 24.6 MMOL/L (23-27)
[2017-12-20] MEDS: INSULIN REGULAR 100 UNIT/ML SUBCUT SCH ×4 (06:26→18:58)
[2017-12-20] MEDS: LACTULOSE 20 GM/30 ML UDCUP PO SCH ×3 (06:26→20:13)
[2017-12-20] MEDS: METOPROLOL TARTRATE 25 MG TABLET PO SCH ×2 (08:58→20:13)
[2017-12-20] MEDS: CIPROFLOXACIN 500 MG TABLET PO SCH (08:58)
[2017-12-20] MEDS: ENOXAPARIN 30 MG/0.3 ML SYRINGE SUBCUT SCH (08:58)
[2017-12-20] MEDS: PANTOPRAZOLE 40 MG VIAL IV SCH (08:58)
[2017-12-20] MEDS: ASPIRIN CHEW 81 MG TABLET PO SCH (08:58)
[2017-12-20] MEDS: SODIUM BICARB INJ 100 MEQ in DEXTROSE 5% NACL 0.45% 1,000 ML IV SCH (12:01)
[2017-12-20] MEDS: MIDAZOLAM 100 MG in SODIUM CHLORIDE 0.9% 80 ML IV SCH ×2 (20:13→23:12)
[2017-12-20] MEDS: fentaNYL INJ 1,250 MCG in SODIUM CHLORIDE 0.9% 225 ML IV SCH (20:14)
[2017-12-21] MEDS: INSULIN REGULAR 100 UNIT/ML SUBCUT SCH ×4 (00:03→17:30)
[2017-12-21] MEDS: ALBUTEROL/IPRATROPIUM 3 ML NEB RESP TX SCH ×4 (00:34→18:08)
[2017-12-21 03:12] LABS: Allen Test Positive; Pt O2 Delivery Device Ventilator
[2017-12-21 03:13] LABS: ABG Base Excess 7.6 MMOL/L (-2.5-2.5); ABG HCO3 31.4 MMOL/L (20-26); ABG Oxygen Saturation 99.9 % (95-100); ABG PCO2 40.4 MM HG (35-48); ABG PH 7.499 (7.35-7.45); ABG TCO2 27.9 MMOL/L (23-27)
[2017-12-21 05:43] LABS: Basophils % 0.2 % (0.0-0.8); Eosinophils # 0.1 10*3/uL (0.0-0.87); Eosinophils % 0.5 % (0.00-10.9); Hematocrit 34.8 VOL% (42.0-52.0); Hemoglobin 11.4 GM/DL (14.0-18.0); Immature Granulocytes % 0.8 %; Lymphocytes # 1.1 10*3/uL (1.4-4.0); Lymphocytes % 8.8 % (21.2-54.2); Mean Corpuscular HGB Conc 32.8 GM/DL (32-36); Mean Corpuscular Hemoglobin 30 PG (27-34); Mean Corpuscular Volume 89.9 FL (87-102); Mean Platelet Volume 11.2 FL (9.6-12.0); Monocytes # 1.5 10*3/uL (0.11-0.8); NRBC # 0.04 10*3/uL; Neutrophils # 9.6 10*3/uL (1.4-7.4); Neutrophils % 77.7 % (38.7-73.9); Platelet Count 169 T/CUMM (130-400); Red Blood Count 3.87 MC/CUMM (3.8-5.5); Red Cell Distribution Width 14.6 % (9.3-17.3); White Blood Count 12.3 T/CUMM (4-12)
[2017-12-21] MEDS: SODIUM BICARB INJ 100 MEQ in DEXTROSE 5% NACL 0.45% 1,000 ML IV SCH (05:57)
[2017-12-21 06:13] LABS: Calcium 6.8 MG/DL (8.5-10.1); Osmolality,Calculated 301.4 MOS/KG (273-304); Potassium 4.5 MMOL/L (3.5-5.1)
[2017-12-21] MEDS: CIPROFLOXACIN 500 MG TABLET PO SCH (08:44)
[2017-12-21] MEDS: ASPIRIN CHEW 81 MG TABLET PO SCH (08:44)
[2017-12-21] MEDS: METOPROLOL TARTRATE 25 MG TABLET PO SCH ×2 (08:44→21:07)
[2017-12-21] MEDS: LACTULOSE 20 GM/30 ML UDCUP PO SCH ×2 (08:44→17:30)
[2017-12-21] MEDS: PANTOPRAZOLE 40 MG VIAL IV SCH (08:44)
[2017-12-21] MEDS: ENOXAPARIN 30 MG/0.3 ML SYRINGE SUBCUT SCH (08:45)
[2017-12-21] MEDS: DEXTROSE 5% NACL 0.9% 1,000 ML IV SCH (11:59)
[2017-12-21] MEDS: PROPOFOL 1,000 MG/100 ML BOTTLE IV SCH (21:08)
[2017-12-22] MEDS: LACTULOSE 20 GM/30 ML UDCUP PO SCH ×3 (00:59→17:06)
[2017-12-22] MEDS: INSULIN REGULAR 100 UNIT/ML SUBCUT SCH ×4 (00:59→17:42)
[2017-12-22] MEDS: ALBUTEROL/IPRATROPIUM 3 ML NEB RESP TX SCH ×4 (01:18→19:21)
[2017-12-22] MEDS: fentaNYL INJ 1,250 MCG in SODIUM CHLORIDE 0.9% 225 ML IV SCH (02:15)
[2017-12-22 03:08] LABS: Basophils % 0.2 % (0.0-0.8); Eosinophils # 0.1 10*3/uL (0.0-0.87); Hematocrit 34.2 VOL% (42.0-52.0); Hemoglobin 10.7 GM/DL (14.0-18.0); Immature Granulocytes % 1.1 %; Immature Granulocytes Absolute 0.14 #; Lymphocytes # 0.9 10*3/uL (1.4-4.0); Lymphocytes % 7.3 % (21.2-54.2); Mean Corpuscular HGB Conc 31.3 GM/DL (32-36); Mean Corpuscular Hemoglobin 29 PG (27-34); Mean Corpuscular Volume 93.7 FL (87-102); Mean Platelet Volume 11.3 FL (9.6-12.0); Monocytes # 1.4 10*3/uL (0.11-0.8); Monocytes % 11.3 % (1.7-12.7); NRBC # 0.02 10*3/uL; Neutrophils # 9.7 10*3/uL (1.4-7.4); Neutrophils % 79.1 % (38.7-73.9); Platelet Count 180 T/CUMM (130-400); Red Blood Count 3.65 MC/CUMM (3.8-5.5); Red Cell Distribution Width 14.6 % (9.3-17.3); White Blood Count 12.3 T/CUMM (4-12)
[2017-12-22 03:31] LABS: ABG Base Excess 10.3 MMOL/L (-2.5-2.5); ABG HCO3 33.7 MMOL/L (20-26); ABG Oxygen Saturation 81.1 % (95-100); ABG PCO2 52.5 MM HG (35-48); ABG PH 7.447 (7.35-7.45); ABG PO2 46.4 MM HG (80-95); ABG TCO2 32.5 MMOL/L (23-27)
[2017-12-22 03:40] LABS: Prealbumin 3.3 MG/DL (20-40)
[2017-12-22 04:02] LABS: Calcium 7.4 MG/DL (8.5-10.1); Osmolality,Calculated 304.7 MOS/KG (273-304); Potassium 3.9 MMOL/L (3.5-5.1)
[2017-12-22] MEDS: MIDAZOLAM 100 MG in SODIUM CHLORIDE 0.9% 80 ML IV SCH ×3 (04:30→20:03)
[2017-12-22 08:20] LABS: Apearance,Urine CLEAR (Clear); Bilirubin,Urine Negative (Negative); Blood, Urine Moderate mg/dL (Negative); Glucose,Urine (UA) Negative (Negative); Ketones,Urine Negative (Negative); Nitrite,Urine Negative (Negative); Protein,Urine 30 MG/DL; RBC,Urine 31 /HPF (0-4); Urine Color Yellow (Yellow); Urine Specific Gravity 1.017 (1.001-1.035); WBC,Urine 6 /HPF (0-6)
[2017-12-22] MEDS: PANTOPRAZOLE 40 MG VIAL IV SCH (08:20)
[2017-12-22] MEDS: CIPROFLOXACIN 500 MG TABLET PO SCH (08:23)
[2017-12-22] MEDS: ENOXAPARIN 30 MG/0.3 ML SYRINGE SUBCUT SCH (08:23)
[2017-12-22] MEDS: METOPROLOL TARTRATE 25 MG TABLET PO SCH ×2 (08:23→20:03)
[2017-12-22] MEDS: ASPIRIN CHEW 81 MG TABLET PO SCH (08:23)
[2017-12-22] MEDS: DEXTROSE 5% NACL 0.9% 1,000 ML IV SCH (08:27)
[2017-12-22] MEDS: LORazepam 2 MG/1 ML VIAL IV PRN (11:34)
[2017-12-22] MEDS: DEXTROSE 5% NACL 0.45% 1,000 ML IV SCH (12:55)
[2017-12-22] MEDS: FOLIC ACID 1 MG TABLET PO SCH (17:06)
[2017-12-22] MEDS: THIAMINE 100 MG TABLET PO SCH (17:06)
[2017-12-22] MEDS: PROPOFOL 1,000 MG/100 ML BOTTLE IV SCH ×2 (19:18→23:14)
[2017-12-23] MEDS: INSULIN REGULAR 100 UNIT/ML SUBCUT SCH ×4 (00:13→18:32)
[2017-12-23] MEDS: LACTULOSE 20 GM/30 ML UDCUP PO SCH ×3 (00:13→18:02)
[2017-12-23] MEDS: ALBUTEROL/IPRATROPIUM 3 ML NEB RESP TX SCH ×4 (00:47→20:03)
[2017-12-23 03:42] LABS: Basophils % 0.2 % (0.0-0.8); Eosinophils # 0.1 10*3/uL (0.0-0.87); Eosinophils % 1.2 % (0.00-10.9); Hematocrit 34.1 VOL% (42.0-52.0); Hemoglobin 10.4 GM/DL (14.0-18.0); Immature Granulocytes % 1.1 %; Immature Granulocytes Absolute 0.13 #; Lymphocytes # 1.2 10*3/uL (1.4-4.0); Lymphocytes % 9.6 % (21.2-54.2); Mean Corpuscular HGB Conc 30.5 GM/DL (32-36); Mean Corpuscular Hemoglobin 29 PG (27-34); Mean Corpuscular Volume 93.4 FL (87-102); Mean Platelet Volume 11.5 FL (9.6-12.0); Monocytes # 1.5 10*3/uL (0.11-0.8); Monocytes % 12.3 % (1.7-12.7); NRBC # 0.04 10*3/uL; Neutrophils # 9.2 10*3/uL (1.4-7.4); Neutrophils % 75.6 % (38.7-73.9); Platelet Count 193 T/CUMM (130-400); Red Blood Count 3.65 MC/CUMM (3.8-5.5); Red Cell Distribution Width 14.6 % (9.3-17.3); White Blood Count 12.2 T/CUMM (4-12)
[2017-12-23 04:16] LABS: Calcium 7.2 MG/DL (8.5-10.1); Osmolality,Calculated 300.7 MOS/KG (273-304); Potassium 4.2 MMOL/L (3.5-5.1)
[2017-12-23] MEDS: MIDAZOLAM 100 MG in SODIUM CHLORIDE 0.9% 80 ML IV SCH (04:43)
[2017-12-23 04:44] LABS: Allen Test Positive; Pt O2 Delivery Device Ventilator
[2017-12-23 04:47] LABS: ABG Base Excess 10.3 MMOL/L (-2.5-2.5); ABG HCO3 33.5 MMOL/L (20-26); ABG Oxygen Saturation 99.2 % (95-100); ABG PCO2 39.2 MM HG (35-48); ABG PH 7.549 (7.35-7.45); ABG PO2 191.2 MM HG (80-95); ABG TCO2 34.7 MMOL/L (23-27)
[2017-12-23] MEDS: ENOXAPARIN 30 MG/0.3 ML SYRINGE SUBCUT SCH (06:27)
[2017-12-23] MEDS: PANTOPRAZOLE 40 MG VIAL IV SCH (08:50)
[2017-12-23] MEDS: THIAMINE 100 MG TABLET PO SCH (08:51)
[2017-12-23] MEDS: ASPIRIN CHEW 81 MG TABLET PO SCH (08:51)
[2017-12-23] MEDS: CIPROFLOXACIN 500 MG TABLET PO SCH (08:51)
[2017-12-23] MEDS: FOLIC ACID 1 MG TABLET PO SCH (08:52)
[2017-12-23] MEDS: METOPROLOL TARTRATE 25 MG TABLET PO SCH ×2 (08:52→20:01)
[2017-12-23] MEDS: ACETAMINOPHEN 325 MG TABLET PO PRN (11:08)
[2017-12-23] MEDS: PROPOFOL 1,000 MG/100 ML BOTTLE IV SCH (11:39)
[2017-12-23] MEDS: DEXTROSE 5% NACL 0.45% 1,000 ML IV SCH (12:47)
[2017-12-24] MEDS: LORazepam 2 MG/1 ML VIAL IV PRN (00:05)
[2017-12-24] MEDS: INSULIN REGULAR 100 UNIT/ML SUBCUT SCH ×4 (00:22→19:09)
[2017-12-24] MEDS: PROPOFOL 1,000 MG/100 ML BOTTLE IV SCH ×4 (00:22→22:32)
[2017-12-24] MEDS: HYDROmorphone 2 MG/1 ML VIAL IV PRN (00:26)
[2017-12-24] MEDS: ALBUTEROL/IPRATROPIUM 3 ML NEB RESP TX SCH ×4 (00:48→19:05)
[2017-12-24] MEDS: LACTULOSE 20 GM/30 ML UDCUP PO SCH ×3 (01:30→16:45)
[2017-12-24 04:17] LABS: ABG HCO3 32.8 MMOL/L (20-26); ABG Oxygen Saturation 99.8 % (95-100); ABG PCO2 41.2 MM HG (35-48); ABG TCO2 29.5 MMOL/L (23-27); Allen Test Positive; Pt O2 Delivery Device Ventilator
[2017-12-24] MEDS: ENOXAPARIN 30 MG/0.3 ML SYRINGE SUBCUT SCH (06:58)
[2017-12-24 08:07] LABS: Basophils % 0.2 % (0.0-0.8); Eosinophils # 0.2 10*3/uL (0.0-0.87); Hematocrit 37.3 VOL% (42.0-52.0); Hemoglobin 11.4 GM/DL (14.0-18.0); Immature Granulocytes Absolute 0.17 #; Lymphocytes # 1.9 10*3/uL (1.4-4.0); Lymphocytes % 11.4 % (21.2-54.2); Mean Corpuscular HGB Conc 30.6 GM/DL (32-36); Mean Corpuscular Hemoglobin 29 PG (27-34); Mean Corpuscular Volume 94.7 FL (87-102); Mean Platelet Volume 11.7 FL (9.6-12.0); Monocytes # 2.1 10*3/uL (0.11-0.8); Monocytes % 12.5 % (1.7-12.7); NRBC # 0.02 10*3/uL; Neutrophils # 12.3 10*3/uL (1.4-7.4); Neutrophils % 73.9 % (38.7-73.9); Platelet Count 210 T/CUMM (130-400); Red Blood Count 3.94 MC/CUMM (3.8-5.5); Red Cell Distribution Width 14.5 % (9.3-17.3); White Blood Count 16.6 T/CUMM (4-12)
[2017-12-24 08:35] LABS: Calcium 7.2 MG/DL (8.5-10.1); Osmolality,Calculated 299.7 MOS/KG (273-304); Potassium 4.4 MMOL/L (3.5-5.1)
[2017-12-24] MEDS: THIAMINE 100 MG TABLET PO SCH (09:20)
[2017-12-24] MEDS: ASPIRIN CHEW 81 MG TABLET PO SCH (09:21)
[2017-12-24] MEDS: PANTOPRAZOLE 40 MG VIAL IV SCH (09:21)
[2017-12-24] MEDS: METOPROLOL TARTRATE 25 MG TABLET PO SCH ×2 (09:21→21:15)
[2017-12-24] MEDS: CIPROFLOXACIN 500 MG TABLET PO SCH (09:22)
[2017-12-24] MEDS: DIAZEPAM 5 MG TABLET NG SCH ×3 (09:22→21:15)
[2017-12-24] MEDS: FOLIC ACID 1 MG TABLET PO SCH (09:22)
[2017-12-24] MEDS ORDERED: FUROSEMIDE 20 MG/2 ML VIAL IV SCH (11:30)
[2017-12-24] MEDS: DEXTROSE 5% NACL 0.45% 1,000 ML IV SCH (14:58)
[2017-12-24] MEDS: FUROSEMIDE INJ 200 MG in SODIUM CHLORIDE 0.9% 80 ML IV SCH (15:12)
[2017-12-24] MEDS ORDERED: MAGNESIUM CITRATE 300 ML BOTTLE PO ONE (15:24)
[2017-12-25] MEDS: ALBUTEROL/IPRATROPIUM 3 ML NEB RESP TX SCH ×5 (00:52→20:18)
[2017-12-25] MEDS: LACTULOSE 20 GM/30 ML UDCUP PO SCH ×3 (01:09→16:21)
[2017-12-25] MEDS: INSULIN REGULAR 100 UNIT/ML SUBCUT SCH ×4 (01:09→17:27)
[2017-12-25 03:56] LABS: ABG Base Excess 8.9 MMOL/L (-2.5-2.5); ABG HCO3 32.7 MMOL/L (20-26); ABG PCO2 55.7 MM HG (35-48); ABG PH 7.412 (7.35-7.45); ABG TCO2 31.5 MMOL/L (23-27)
[2017-12-25] MEDS: PROPOFOL 1,000 MG/100 ML BOTTLE IV SCH ×2 (04:15→22:17)
[2017-12-25 08:03] LABS: Calcium 7.7 MG/DL (8.5-10.1); Osmolality,Calculated 297.7 MOS/KG (273-304); Potassium 4.1 MMOL/L (3.5-5.1)
[2017-12-25 08:21] LABS: Prealbumin 4.5 MG/DL (20-40)
[2017-12-25] MEDS: ENOXAPARIN 30 MG/0.3 ML SYRINGE SUBCUT SCH (09:14)
[2017-12-25] MEDS: ASPIRIN CHEW 81 MG TABLET PO SCH (09:15)
[2017-12-25] MEDS: LISINOPRIL 2.5 MG TABLET PO SCH ×2 (09:15→21:44)
[2017-12-25] MEDS: DIAZEPAM 5 MG TABLET NG SCH (09:15)
[2017-12-25] MEDS: THIAMINE 100 MG TABLET PO SCH (09:15)
[2017-12-25] MEDS: METOPROLOL TARTRATE 25 MG TABLET PO SCH ×2 (09:15→21:44)
[2017-12-25] MEDS: FOLIC ACID 1 MG TABLET PO SCH (09:16)
[2017-12-25] MEDS: SPIRONOLACTONE 25 MG TABLET PO SCH (09:16)
[2017-12-25] MEDS: CIPROFLOXACIN 500 MG TABLET PO SCH (09:17)
[2017-12-25] MEDS: PANTOPRAZOLE 40 MG VIAL IV SCH (09:17)
[2017-12-25] MEDS ORDERED: ENOXAPARIN 60 MG/0.6 ML SYRINGE SUBCUT ONE (11:00)
[2017-12-25 11:12] LABS: Basophils % 0.3 % (0.0-0.8); Eosinophils # 0.1 10*3/uL (0.0-0.87); Eosinophils % 0.8 % (0.00-10.9); Hematocrit 35.4 VOL% (42.0-52.0); Hemoglobin 11.4 GM/DL (14.0-18.0); Immature Granulocytes % 0.7 %; Lymphocytes # 1.1 10*3/uL (1.4-4.0); Lymphocytes % 7.2 % (21.2-54.2); Mean Corpuscular HGB Conc 32.2 GM/DL (32-36); Mean Corpuscular Hemoglobin 29 PG (27-34); Mean Corpuscular Volume 90.8 FL (87-102); Mean Platelet Volume 10.6 FL (9.6-12.0); Monocytes # 1.6 10*3/uL (0.11-0.8); Monocytes % 10.6 % (1.7-12.7); Neutrophils # 11.7 10*3/uL (1.4-7.4); Neutrophils % 80.4 % (38.7-73.9); Platelet Count 262 T/CUMM (130-400); Red Cell Distribution Width 14.3 % (9.3-17.3); White Blood Count 14.6 T/CUMM (4-12)
[2017-12-25 11:24] LABS: INR 1.3; PT Patient Result 13.6 SECS; Partial Thromboplastin Time 29.7 SECS (0-40)
[2017-12-25 12:05] LABS: ABG Base Excess 11.8 MMOL/L (-2.5-2.5); ABG HCO3 35.6 MMOL/L (20-26); ABG Oxygen Saturation 99.3 % (95-100); ABG PCO2 42.5 MM HG (35-48); ABG PH 7.534 (7.35-7.45); ABG TCO2 31.8 MMOL/L (23-27)
[2017-12-25] MEDS ORDERED: DIAZEPAM 5 MG TABLET NG SCH (15:00)
[2017-12-25] MEDS: FUROSEMIDE INJ 200 MG in SODIUM CHLORIDE 0.9% 80 ML IV SCH (16:05)
[2017-12-25] MEDS: HYDROmorphone 2 MG/1 ML VIAL IV PRN (16:31)
[2017-12-25] MEDS: FUROSEMIDE 40 MG/4 ML VIAL IV SCH (18:36)
[2017-12-25] MEDS: LORazepam 2 MG/1 ML VIAL IV PRN (21:45)
[2017-12-26] MEDS: ALBUTEROL/IPRATROPIUM 3 ML NEB RESP TX SCH ×7 (00:08→20:17)
[2017-12-26] MEDS: INSULIN REGULAR 100 UNIT/ML SUBCUT SCH ×4 (00:14→18:18)
[2017-12-26] MEDS: ENOXAPARIN 100 MG/ML SYRINGE SUBCUT SCH ×2 (00:22→10:30)
[2017-12-26] MEDS: LACTULOSE 20 GM/30 ML UDCUP PO SCH ×3 (01:45→22:13)
[2017-12-26] MEDS: LORazepam 2 MG/1 ML VIAL IV PRN ×2 (03:01→23:04)
[2017-12-26 03:30] LABS: ABG Base Excess 10.3 MMOL/L (-2.5-2.5); ABG HCO3 33.8 MMOL/L (20-26); ABG Oxygen Saturation 89.7 % (95-100); ABG PCO2 41.2 MM HG (35-48); ABG PH 7.527 (7.35-7.45); ABG PO2 57.4 MM HG (80-95); ABG TCO2 29.6 MMOL/L (23-27); Allen Test Positive; Pt O2 Delivery Device Other
[2017-12-26] MEDS: METOPROLOL TARTRATE 25 MG TABLET PO SCH (08:36)
[2017-12-26] MEDS: CIPROFLOXACIN 500 MG TABLET PO SCH (08:36)
[2017-12-26] MEDS: LISINOPRIL 2.5 MG TABLET PO SCH ×2 (08:36→22:13)
[2017-12-26] MEDS: THIAMINE 100 MG TABLET PO SCH (08:36)
[2017-12-26] MEDS: SPIRONOLACTONE 25 MG TABLET PO SCH (08:37)
[2017-12-26] MEDS: ASPIRIN CHEW 81 MG TABLET PO SCH (08:37)
[2017-12-26] MEDS: PANTOPRAZOLE 40 MG VIAL IV SCH (08:37)
[2017-12-26] MEDS: FOLIC ACID 1 MG TABLET PO SCH (08:37)
[2017-12-26] MEDS: FUROSEMIDE 40 MG/4 ML VIAL IV SCH (08:39)
[2017-12-26] MEDS: PENICILLIN G POTASSIUM INJ 2,000,000 UNIT in SODIUM CHLORIDE 0.9% 100 ML IV SCH ×3 (11:49→23:51)
[2017-12-26] MEDS: FUROSEMIDE 40 MG TABLET PO SCH (18:17)
[2017-12-26] MEDS: CARVEDILOL 12.5 MG TABLET PO SCH (22:09)
[2017-12-27] MEDS: ALBUTEROL/IPRATROPIUM 3 ML NEB RESP TX SCH ×7 (00:28→23:55)
[2017-12-27] MEDS: ENOXAPARIN 100 MG/ML SYRINGE SUBCUT SCH ×3 (00:57→22:01)
[2017-12-27] MEDS: INSULIN REGULAR 100 UNIT/ML SUBCUT SCH ×4 (00:59→17:58)
[2017-12-27 03:53] LABS: ABG Base Excess 6.4 MMOL/L (-2.5-2.5); ABG HCO3 30.8 MMOL/L (20-26); ABG Oxygen Saturation 98.1 % (95-100); ABG PCO2 43.4 MM HG (35-48); ABG PH 7.469 (7.35-7.45); ABG PO2 115.9 MM HG (80-95); ABG TCO2 32.1 MMOL/L (23-27)
[2017-12-27] MEDS: PENICILLIN G POTASSIUM INJ 2,000,000 UNIT in SODIUM CHLORIDE 0.9% 100 ML IV SCH ×2 (05:25→15:42)
[2017-12-27 07:05] LABS: Basophils % 0.3 % (0.0-0.8); Eosinophils # 0.2 10*3/uL (0.0-0.87); Eosinophils % 1.8 % (0.00-10.9); Hematocrit 34.5 VOL% (42.0-52.0); Hemoglobin 10.8 GM/DL (14.0-18.0); Immature Granulocytes % 0.5 %; Immature Granulocytes Absolute 0.06 #; Lymphocytes # 1.8 10*3/uL (1.4-4.0); Lymphocytes % 15.2 % (21.2-54.2); Mean Corpuscular HGB Conc 31.3 GM/DL (32-36); Mean Corpuscular Hemoglobin 29 PG (27-34); Mean Corpuscular Volume 91.3 FL (87-102); Mean Platelet Volume 10.6 FL (9.6-12.0); Monocytes # 1.3 10*3/uL (0.11-0.8); Monocytes % 11.2 % (1.7-12.7); Neutrophils # 8.2 10*3/uL (1.4-7.4); Platelet Count 308 T/CUMM (130-400); Red Blood Count 3.78 MC/CUMM (3.8-5.5); Red Cell Distribution Width 13.9 % (9.3-17.3); White Blood Count 11.6 T/CUMM (4-12)
[2017-12-27 07:32] LABS: Calcium 8.3 MG/DL (8.5-10.1); Hypochromasia 1+; Microcytosis 1+; Osmolality,Calculated 297.1 MOS/KG (273-304); Platelet Estimate Normal; Potassium 3.8 MMOL/L (3.5-5.1)
[2017-12-27] MEDS: LACTULOSE 20 GM/30 ML UDCUP PO SCH ×2 (11:03→20:59)
[2017-12-27] MEDS: THIAMINE 100 MG TABLET PO SCH (11:03)
[2017-12-27] MEDS: CARVEDILOL 12.5 MG TABLET PO SCH ×2 (11:03→20:59)
[2017-12-27] MEDS: SPIRONOLACTONE 25 MG TABLET PO SCH (11:03)
[2017-12-27] MEDS: FUROSEMIDE 40 MG TABLET PO SCH ×2 (11:03→17:11)
[2017-12-27] MEDS: FOLIC ACID 1 MG TABLET PO SCH (11:03)
[2017-12-27] MEDS: ASPIRIN CHEW 81 MG TABLET PO SCH (11:03)
[2017-12-27] MEDS: PANTOPRAZOLE 40 MG VIAL IV SCH (11:04)
[2017-12-27] MEDS: LISINOPRIL 2.5 MG TABLET PO SCH ×2 (11:04→20:59)
[2017-12-27] MEDS: LORazepam 2 MG/1 ML VIAL IV PRN (12:22)
[2017-12-27] MEDS: HALOPERIDOL 5 MG/ML AMP IV PRN (21:40)
[2017-12-27 23:23] LABS: ABG Base Excess 4.5 MMOL/L (-2.5-2.5); ABG HCO3 28.4 MMOL/L (20-26); ABG Oxygen Saturation 95.4 % (95-100); ABG PCO2 46.6 MM HG (35-48); ABG PH 7.414 (7.35-7.45); ABG PO2 81.1 MM HG (80-95); ABG TCO2 26.8 MMOL/L (23-27); Allen Test Positive
[2017-12-27] MEDS ORDERED: FUROSEMIDE 40 MG/4 ML VIAL IV ONE (23:30)
[2017-12-28] MEDS: INSULIN REGULAR 100 UNIT/ML SUBCUT SCH ×4 (01:17→17:38)
[2017-12-28] MEDS: ALBUTEROL/IPRATROPIUM 3 ML NEB RESP TX SCH ×5 (03:33→19:39)
[2017-12-28 03:59] LABS: ABG Base Excess 5.9 MMOL/L (-2.5-2.5); ABG HCO3 29.8 MMOL/L (20-26); ABG Oxygen Saturation 97.9 % (95-100); ABG PCO2 40.6 MM HG (35-48); ABG PH 7.484 (7.35-7.45); ABG PO2 104.9 MM HG (80-95); ABG TCO2 31.1 MMOL/L (23-27); Allen Test Positive
[2017-12-28 06:02] LABS: Basophils % 0.2 % (0.0-0.8); Eosinophils # 0.1 10*3/uL (0.0-0.87); Eosinophils % 0.8 % (0.00-10.9); Hematocrit 34.5 VOL% (42.0-52.0); Hemoglobin 10.9 GM/DL (14.0-18.0); Immature Granulocytes % 0.6 %; Immature Granulocytes Absolute 0.08 #; Lymphocytes # 1.6 10*3/uL (1.4-4.0); Lymphocytes % 12.4 % (21.2-54.2); Mean Corpuscular HGB Conc 31.6 GM/DL (32-36); Mean Corpuscular Hemoglobin 29 PG (27-34); Mean Corpuscular Volume 90.6 FL (87-102); Mean Platelet Volume 10.7 FL (9.6-12.0); Monocytes # 1.2 10*3/uL (0.11-0.8); Monocytes % 8.8 % (1.7-12.7); Neutrophils # 10.1 10*3/uL (1.4-7.4); Neutrophils % 77.2 % (38.7-73.9); Platelet Count 338 T/CUMM (130-400); Red Blood Count 3.81 MC/CUMM (3.8-5.5); White Blood Count 13.1 T/CUMM (4-12)
[2017-12-28 06:28] LABS: Osmolality,Calculated 297.3 MOS/KG (273-304); Potassium 3.8 MMOL/L (3.5-5.1)
[2017-12-28] MEDS: LISINOPRIL 2.5 MG TABLET PO SCH ×2 (09:06→22:43)
[2017-12-28] MEDS: THIAMINE 100 MG TABLET PO SCH (09:06)
[2017-12-28] MEDS: CARVEDILOL 12.5 MG TABLET PO SCH ×2 (09:06→22:42)
[2017-12-28] MEDS: LACTULOSE 20 GM/30 ML UDCUP PO SCH ×2 (09:06→22:44)
[2017-12-28] MEDS: PANTOPRAZOLE 40 MG VIAL IV SCH (09:06)
[2017-12-28] MEDS: FOLIC ACID 1 MG TABLET PO SCH (09:06)
[2017-12-28] MEDS: ASPIRIN CHEW 81 MG TABLET PO SCH (09:06)
[2017-12-28] MEDS: SPIRONOLACTONE 25 MG TABLET PO SCH (09:07)
[2017-12-28] MEDS: FUROSEMIDE 40 MG TABLET PO SCH ×2 (09:07→22:43)
[2017-12-28] MEDS: CEFEPIME 2,000 MG in SYRINGE 1 EACH IV SCH ×2 (13:19→23:10)
[2017-12-28] MEDS: ENOXAPARIN 100 MG/ML SYRINGE SUBCUT SCH ×2 (13:19→22:43)
[2017-12-28] MEDS: ACETAMINOPHEN 325 MG TABLET PO PRN (22:43)
[2017-12-29] MEDS: ALBUTEROL/IPRATROPIUM 3 ML NEB RESP TX SCH ×7 (00:12→23:55)
[2017-12-29] MEDS: INSULIN REGULAR 100 UNIT/ML SUBCUT SCH ×4 (01:08→17:51)
[2017-12-29 03:40] LABS: ABG Base Excess 2.9 MMOL/L (-2.5-2.5); ABG Oxygen Saturation 97.7 % (95-100); ABG PCO2 42.2 MM HG (35-48); ABG PH 7.424 (7.35-7.45); ABG TCO2 24.1 MMOL/L (23-27)
[2017-12-29 06:18] LABS: Basophils % 0.4 % (0.0-0.8); Eosinophils % 0.4 % (0.00-10.9); Hematocrit 31.4 VOL% (42.0-52.0); Immature Granulocytes % 0.6 %; Immature Granulocytes Absolute 0.06 #; Lymphocytes # 1.4 10*3/uL (1.4-4.0); Lymphocytes % 12.9 % (21.2-54.2); Mean Corpuscular HGB Conc 31.8 GM/DL (32-36); Mean Corpuscular Hemoglobin 29 PG (27-34); Mean Platelet Volume 10.7 FL (9.6-12.0); Monocytes # 0.5 10*3/uL (0.11-0.8); Monocytes % 5.1 % (1.7-12.7); Neutrophils # 8.5 10*3/uL (1.4-7.4); Neutrophils % 80.6 % (38.7-73.9); Platelet Count 286 T/CUMM (130-400); Red Blood Count 3.45 MC/CUMM (3.8-5.5); Red Cell Distribution Width 14.1 % (9.3-17.3); White Blood Count 10.6 T/CUMM (4-12)
[2017-12-29 06:51] LABS: Calcium 7.9 MG/DL (8.5-10.1); Osmolality,Calculated 294.3 MOS/KG (273-304); Potassium 3.9 MMOL/L (3.5-5.1)
[2017-12-29 06:55] LABS: Prealbumin 4.4 MG/DL (20-40)
[2017-12-29] MEDS: LISINOPRIL 2.5 MG TABLET PO SCH ×2 (09:15→21:15)
[2017-12-29] MEDS: ASPIRIN CHEW 81 MG TABLET PO SCH (09:15)
[2017-12-29] MEDS: LACTULOSE 20 GM/30 ML UDCUP PO SCH ×2 (09:16→21:15)
[2017-12-29] MEDS: THIAMINE 100 MG TABLET PO SCH (09:16)
[2017-12-29] MEDS: SPIRONOLACTONE 25 MG TABLET PO SCH (09:16)
[2017-12-29] MEDS: ENOXAPARIN 100 MG/ML SYRINGE SUBCUT SCH ×3 (09:16→22:54)
[2017-12-29] MEDS: FUROSEMIDE 40 MG TABLET PO SCH ×2 (09:16→16:24)
[2017-12-29] MEDS: PANTOPRAZOLE 40 MG VIAL IV SCH (09:16)
[2017-12-29] MEDS: FOLIC ACID 1 MG TABLET PO SCH (09:16)
[2017-12-29] MEDS: CARVEDILOL 12.5 MG TABLET PO SCH ×2 (09:16→21:15)
[2017-12-29] MEDS: CEFEPIME 2,000 MG in SYRINGE 1 EACH IV SCH ×2 (09:17→16:24)
[2017-12-29] MEDS: HALOPERIDOL 5 MG/ML AMP IV PRN (11:49)
[2017-12-30] MEDS: CEFEPIME 2,000 MG in SYRINGE 1 EACH IV SCH ×4 (00:37→23:04)
[2017-12-30] MEDS: INSULIN REGULAR 100 UNIT/ML SUBCUT SCH ×4 (00:41→17:03)
[2017-12-30] MEDS: ALBUTEROL/IPRATROPIUM 3 ML NEB RESP TX SCH ×6 (03:28→23:35)
[2017-12-30 06:02] LABS: Basophils % 0.2 % (0.0-0.8); Eosinophils # 0.1 10*3/uL (0.0-0.87); Hematocrit 32.6 VOL% (42.0-52.0); Hemoglobin 10.1 GM/DL (14.0-18.0); Immature Granulocytes % 0.7 %; Immature Granulocytes Absolute 0.07 #; Lymphocytes # 1.7 10*3/uL (1.4-4.0); Lymphocytes % 17.8 % (21.2-54.2); Mean Corpuscular Hemoglobin 28 PG (27-34); Mean Corpuscular Volume 90.8 FL (87-102); Mean Platelet Volume 10.9 FL (9.6-12.0); Monocytes # 0.7 10*3/uL (0.11-0.8); Monocytes % 7.6 % (1.7-12.7); Neutrophils # 6.9 10*3/uL (1.4-7.4); Neutrophils % 72.7 % (38.7-73.9); Platelet Count 279 T/CUMM (130-400); Red Blood Count 3.59 MC/CUMM (3.8-5.5); Red Cell Distribution Width 13.6 % (9.3-17.3); White Blood Count 9.5 T/CUMM (4-12)
[2017-12-30 06:34] LABS: Calcium 7.8 MG/DL (8.5-10.1); Osmolality,Calculated 275.7 MOS/KG (273-304); Potassium 3.9 MMOL/L (3.5-5.1)
[2017-12-30 06:37] LABS: Albumin 1.9 G/DL (3.4-5.0); Bilirubin,Direct 0.62 MG/DL (0.0-0.20); Bilirubin,Indirect 0.7 MG/DL (0.0-1.0); Bilirubin,Total 1.3 MG/DL (0.2-1.0); Total Protein 5.4 G/DL (6.4-8.3)
[2017-12-30] MEDS: SPIRONOLACTONE 25 MG TABLET PO SCH (09:22)
[2017-12-30] MEDS: ASPIRIN CHEW 81 MG TABLET PO SCH (09:22)
[2017-12-30] MEDS: FUROSEMIDE 40 MG TABLET PO SCH ×2 (09:22→17:03)
[2017-12-30] MEDS: THIAMINE 100 MG TABLET PO SCH (09:23)
[2017-12-30] MEDS: PANTOPRAZOLE 40 MG VIAL IV SCH (09:23)
[2017-12-30] MEDS: CARVEDILOL 12.5 MG TABLET PO SCH ×2 (09:23→21:08)
[2017-12-30] MEDS: LISINOPRIL 2.5 MG TABLET PO SCH ×2 (09:23→21:08)
[2017-12-30] MEDS: FOLIC ACID 1 MG TABLET PO SCH (09:23)
[2017-12-30] MEDS: LACTULOSE 20 GM/30 ML UDCUP PO SCH ×2 (09:23→21:08)
[2017-12-30] MEDS: ENOXAPARIN 100 MG/ML SYRINGE SUBCUT SCH ×2 (12:02→23:03)
[2017-12-30 18:37] LABS: Apearance,Urine CLEAR (Clear); Bilirubin,Urine Negative (Negative); Blood, Urine Negative (Negative); Glucose,Urine (UA) Negative (Negative); Ketones,Urine Negative (Negative); Mucus,Urine Few /LPF (Occasional); Nitrite,Urine Negative (Negative); Protein,Urine 30 MG/DL; RBC,Urine 2 /HPF (0-4); Squamous Epithelial Cell,Urine Occasional /HPF (0-10); Urine Color Yellow (Yellow); Urine Specific Gravity 1.015 (1.001-1.035); WBC,Urine 3 /HPF (0-6)
[2017-12-31] MEDS: INSULIN REGULAR 100 UNIT/ML SUBCUT SCH ×3 (01:40→12:51)
[2017-12-31] MEDS: ALBUTEROL/IPRATROPIUM 3 ML NEB RESP TX SCH ×5 (02:03→19:31)
[2017-12-31 06:47] LABS: Basophils % 0.1 % (0.0-0.8); Eosinophils # 0.2 10*3/uL (0.0-0.87); Eosinophils % 2.3 % (0.00-10.9); Hematocrit 33.2 VOL% (42.0-52.0); Hemoglobin 10.5 GM/DL (14.0-18.0); Immature Granulocytes % 0.5 %; Immature Granulocytes Absolute 0.04 #; Lymphocytes # 1.5 10*3/uL (1.4-4.0); Lymphocytes % 17.6 % (21.2-54.2); Mean Corpuscular HGB Conc 31.6 GM/DL (32-36); Mean Corpuscular Hemoglobin 28 PG (27-34); Mean Corpuscular Volume 88.3 FL (87-102); Mean Platelet Volume 11.1 FL (9.6-12.0); Monocytes # 0.9 10*3/uL (0.11-0.8); Monocytes % 10.8 % (1.7-12.7); Neutrophils # 5.7 10*3/uL (1.4-7.4); Neutrophils % 68.7 % (38.7-73.9); Platelet Count 296 T/CUMM (130-400); Red Blood Count 3.76 MC/CUMM (3.8-5.5); Red Cell Distribution Width 13.5 % (9.3-17.3); White Blood Count 8.3 T/CUMM (4-12)
[2017-12-31 07:24] LABS: Calcium 7.6 MG/DL (8.5-10.1); Osmolality,Calculated 276.5 MOS/KG (273-304); Potassium 4.1 MMOL/L (3.5-5.1)
[2017-12-31] MEDS: CARVEDILOL 12.5 MG TABLET PO SCH ×2 (09:21→20:54)
[2017-12-31] MEDS: FUROSEMIDE 40 MG TABLET PO SCH ×2 (09:21→17:41)
[2017-12-31] MEDS: LACTULOSE 20 GM/30 ML UDCUP PO SCH ×2 (09:21→20:53)
[2017-12-31] MEDS: THIAMINE 100 MG TABLET PO SCH (09:21)
[2017-12-31] MEDS: ASPIRIN CHEW 81 MG TABLET PO SCH (09:21)
[2017-12-31] MEDS: FOLIC ACID 1 MG TABLET PO SCH (09:21)
[2017-12-31] MEDS: CEFEPIME 2,000 MG in SYRINGE 1 EACH IV SCH ×3 (09:24→23:50)
[2017-12-31] MEDS: PANTOPRAZOLE 40 MG TABLET PO SCH (09:24)
[2017-12-31] MEDS: ENOXAPARIN 100 MG/ML SYRINGE SUBCUT SCH (12:52)
[2017-12-31] MEDS: VANCOMYCIN INJ 1,250 MG in SODIUM CHLORIDE 0.9% 250 ML IV SCH (18:40)
[2018-01-01] MEDS: ALBUTEROL/IPRATROPIUM 3 ML NEB RESP TX SCH ×5 (00:01→14:45)
[2018-01-01] MEDS: HALOPERIDOL 5 MG/ML AMP IV PRN (01:18)
[2018-01-01] MEDS: VANCOMYCIN INJ 1,250 MG in SODIUM CHLORIDE 0.9% 250 ML IV SCH (05:21)
[2018-01-01 06:49] LABS: Basophils % 0.3 % (0.0-0.8); Eosinophils # 0.2 10*3/uL (0.0-0.87); Eosinophils % 3.4 % (0.00-10.9); Hematocrit 34.7 VOL% (42.0-52.0); Hemoglobin 11.4 GM/DL (14.0-18.0); Immature Granulocytes % 0.4 %; Immature Granulocytes Absolute 0.03 #; Lymphocytes # 1.7 10*3/uL (1.4-4.0); Lymphocytes % 24.2 % (21.2-54.2); Mean Corpuscular HGB Conc 32.9 GM/DL (32-36); Mean Corpuscular Hemoglobin 29 PG (27-34); Mean Corpuscular Volume 87.2 FL (87-102); Mean Platelet Volume 10.8 FL (9.6-12.0); Monocytes # 0.9 10*3/uL (0.11-0.8); Monocytes % 12.3 % (1.7-12.7); Neutrophils # 4.1 10*3/uL (1.4-7.4); Neutrophils % 59.4 % (38.7-73.9); Platelet Count 310 T/CUMM (130-400); Red Blood Count 3.98 MC/CUMM (3.8-5.5); Red Cell Distribution Width 13.5 % (9.3-17.3)
[2018-01-01 07:05] LABS: Calcium 7.9 MG/DL (8.5-10.1); Osmolality,Calculated 275.5 MOS/KG (273-304); Potassium 4.3 MMOL/L (3.5-5.1)
[2018-01-01 07:16] LABS: Eosinophils 6 % (0-10); Lymphocytes 20 % (20-55); Segmented Neutrophils 62 % (50-85); Total Cells Counted 100
[2018-01-01 07:17] LABS: Hypochromasia 1+; Microcytosis Slight; Ovalocytes Slight
[2018-01-01 07:18] LABS: Platelet Estimate Normal
[2018-01-01] MEDS: PANTOPRAZOLE 40 MG TABLET PO SCH (08:43)
[2018-01-01] MEDS: THIAMINE 100 MG TABLET PO SCH (08:43)
[2018-01-01] MEDS: CARVEDILOL 12.5 MG TABLET PO SCH (08:43)
[2018-01-01] MEDS: LACTULOSE 20 GM/30 ML UDCUP PO SCH (08:43)
[2018-01-01] MEDS: FUROSEMIDE 40 MG TABLET PO SCH ×2 (08:43→16:25)
[2018-01-01] MEDS: ASPIRIN CHEW 81 MG TABLET PO SCH (08:43)
[2018-01-01] MEDS: FOLIC ACID 1 MG TABLET PO SCH (08:43)
[2018-01-01] MEDS: CEFEPIME 2,000 MG in SYRINGE 1 EACH IV SCH ×2 (08:44→16:25)
[2018-01-01] MEDS ORDERED: LISINOPRIL 2.5 MG TABLET PO SCH (09:00)
[2018-01-01] MEDS ORDERED: ENOXAPARIN 40 MG/0.4 ML SYRINGE SUBCUT SCH (12:00)
[2018-01-01] MEDS ORDERED: SPIRONOLACTONE 25 MG TABLET PO SCH (12:00)
[2018-01-01 16:52] VITALS: BP 91/57
[2018-01-02] MEDS ORDERED: CAPTOPRIL 12.5 MG TABLET PO SCH (09:00)
== END 2018-01-01 17:36 | disposition home or self-care (01) | DRG 166 ==
LOC: N.EDINP 03:36 → N.ED 03:36 → SUATTDRO 07:17 → N.EDINP 16:34 → N.3E 16:39 → N.CC 12-13 15:17 → SUATTDRO 12-14 08:46 → N.5E 12-26 15:53
PROVIDERS: ADMIT Internal Medicine; ATTEND Internal Medicine Geriatric Medicine
PROC: CLCCHCL (ICD-10-PCS; 2017-12-12 09:15)

== ENCOUNTER 2018-02-28 23:07 | Observation (INO) ==
[2018-02-28] MEDS ORDERED: FUROSEMIDE 40 MG/4 ML VIAL IV STA (23:46)
[2018-02-28] MEDS ORDERED: ASPIRIN CHEW 81 MG TABLET PO STA (23:49)
[2018-03-01 01:16] LABS: Alanine Aminotransferase 20 U/L (16-61); Albumin 3.6 G/DL (3.4-5.0); Alkaline Phosphatase 74 U/L (45-117); Aspartate Amino Transferase 22 U/L (0-37); Blood Urea Nitrogen 10 MG/DL (7-18); Calcium 9.5 MG/DL (8.5-10.1); Glucose 91 MG/DL (74-106); Potassium 3.7 MMOL/L (3.5-5.1); Sodium 143 MMOL/L (136-145); Total Protein 7.7 G/DL (6.4-8.3); Troponin I Only < 0.015 NG/ML (0.00-0.045)
[2018-03-01 01:35] LABS: Basophils % 0.7 % (0.0-0.8); Eosinophils # 0.2 10*3/uL (0.0-0.87); Eosinophils % 3.5 % (0.00-10.9); Hematocrit 41.6 VOL% (42.0-52.0); Hemoglobin 13.6 GM/DL (14.0-18.0); Immature Granulocytes % 0.4 %; Immature Granulocytes Absolute 0.02 #; Lymphocytes # 1.9 10*3/uL (1.4-4.0); Lymphocytes % 32.9 % (21.2-54.2); Mean Corpuscular HGB Conc 32.7 GM/DL (32-36); Mean Corpuscular Hemoglobin 28 PG (27-34); Mean Platelet Volume 9.8 FL (9.6-12.0); Monocytes # 0.5 10*3/uL (0.11-0.8); Monocytes % 9.4 % (1.7-12.7); Neutrophils % 53.1 % (38.7-73.9); Platelet Count 237 T/CUMM (130-400); Red Blood Count 4.84 MC/CUMM (3.8-5.5); Red Cell Distribution Width 14.4 % (9.3-17.3); White Blood Count 5.7 T/CUMM (4-12)
[2018-03-01] MEDS ORDERED: ONDANSETRON 4 MG/2 ML VIAL IV PRN (03:43)
[2018-03-01] MEDS ORDERED: MORPHINE 4 MG/1 ML VIAL IV PRN (03:43)
[2018-03-01] MEDS ORDERED: NITROGLYCERIN SL 0.4 MG TABLET SL PRN (03:50)
[2018-03-01 07:20] LABS: Risk Ratio 2.41; VLDL CHOLESTEROL 16.6 MG/DL
[2018-03-01] MEDS ORDERED: LISINOPRIL 2.5 MG TABLET PO SCH (09:00)
[2018-03-01] MEDS: ASPIRIN CHEW 81 MG TABLET PO SCH (09:57)
[2018-03-01] MEDS: ENOXAPARIN 40 MG/0.4 ML SYRINGE SUBCUT SCH (09:57)
[2018-03-01] MEDS: PANTOPRAZOLE 40 MG TABLET PO SCH (09:57)
[2018-03-01] MEDS: DOCUSATE SODIUM 100 MG CAPSULE PO SCH ×2 (09:57→21:52)
[2018-03-01] MEDS: CARVEDILOL 6.25 MG TABLET PO SCH ×2 (09:58→21:52)
[2018-03-01] MEDS: FUROSEMIDE 40 MG/4 ML VIAL IV SCH ×2 (09:58→17:05)
[2018-03-01] MEDS: THIAMINE 100 MG TABLET PO SCH (09:58)
[2018-03-01 11:55] LABS: Barbiturates Screen,Urine Negative (Negative); Benzodiazepines Screen,Urine Negative (Negative); Cannabinoid Screen,Urine Negative (Negative); Opiate Screen,Urine Negative (Negative); Phencyclidine Screen,Urine Negative (Negative)
[2018-03-01] MEDS: SPIRONOLACTONE 25 MG TABLET PO SCH (17:05)
[2018-03-02 07:37] LABS: Basophils % 0.6 % (0.0-0.8); Eosinophils # 0.2 10*3/uL (0.0-0.87); Eosinophils % 2.8 % (0.00-10.9); Hematocrit 39.7 VOL% (42.0-52.0); Hemoglobin 13.2 GM/DL (14.0-18.0); Immature Granulocytes % 0.2 %; Immature Granulocytes Absolute 0.01 #; Lymphocytes % 31.2 % (21.2-54.2); Mean Corpuscular HGB Conc 33.2 GM/DL (32-36); Mean Corpuscular Hemoglobin 28 PG (27-34); Mean Corpuscular Volume 83.9 FL (87-102); Mean Platelet Volume 10.2 FL (9.6-12.0); Monocytes # 0.6 10*3/uL (0.11-0.8); Monocytes % 9.8 % (1.7-12.7); Neutrophils # 3.6 10*3/uL (1.4-7.4); Neutrophils % 55.4 % (38.7-73.9); Platelet Count 246 T/CUMM (130-400); Red Blood Count 4.73 MC/CUMM (3.8-5.5); Red Cell Distribution Width 14.3 % (9.3-17.3); White Blood Count 6.4 T/CUMM (4-12)
[2018-03-02 08:08] LABS: Calcium 8.9 MG/DL (8.5-10.1); Osmolality,Calculated 281.3 MOS/KG (273-304); Potassium 3.9 MMOL/L (3.5-5.1)
[2018-03-02] MEDS ORDERED: BENZOCAINE/MENTHOL LOZENGE 18/BOX PO PRN (09:50)
[2018-03-02] MEDS: ENOXAPARIN 40 MG/0.4 ML SYRINGE SUBCUT SCH (10:03)
[2018-03-02] MEDS: FUROSEMIDE 40 MG/4 ML VIAL IV SCH ×2 (10:03→15:37)
[2018-03-02] MEDS: THIAMINE 100 MG TABLET PO SCH (10:04)
[2018-03-02] MEDS: CARVEDILOL 6.25 MG TABLET PO SCH ×2 (10:04→20:15)
[2018-03-02] MEDS: DOCUSATE SODIUM 100 MG CAPSULE PO SCH ×2 (10:04→20:16)
[2018-03-02] MEDS: ASPIRIN CHEW 81 MG TABLET PO SCH (10:04)
[2018-03-02] MEDS: PANTOPRAZOLE 40 MG TABLET PO SCH (10:04)
[2018-03-02] MEDS: SPIRONOLACTONE 25 MG TABLET PO SCH (10:04)
[2018-03-02] MEDS: VALSARTAN 80 MG TABLET PO SCH (10:04)
[2018-03-02] MEDS ORDERED: MAGNESIUM SULF RIDER 4 GM in PREMIX 1 EACH IV PRN (13:22)
[2018-03-02] MEDS: MAGNESIUM SULF RIDER 2 GM in PREMIX 1 EACH IV PRN (13:49)
[2018-03-02] MEDS ORDERED: ALUMINUM/MAGNES/SIMETH MAX STR 30 ML UDCUP PO PRN (23:37)
[2018-03-03 06:07] LABS: Basophils % 0.5 % (0.0-0.8); Eosinophils # 0.3 10*3/uL (0.0-0.87); Hematocrit 38.1 VOL% (42.0-52.0); Hemoglobin 12.5 GM/DL (14.0-18.0); Immature Granulocytes % 0.3 %; Immature Granulocytes Absolute 0.02 #; Lymphocytes % 30.8 % (21.2-54.2); Mean Corpuscular HGB Conc 32.8 GM/DL (32-36); Mean Corpuscular Hemoglobin 28 PG (27-34); Mean Corpuscular Volume 84.9 FL (87-102); Mean Platelet Volume 9.9 FL (9.6-12.0); Monocytes # 0.7 10*3/uL (0.11-0.8); Neutrophils # 3.5 10*3/uL (1.4-7.4); Neutrophils % 53.4 % (38.7-73.9); Platelet Count 250 T/CUMM (130-400); Red Blood Count 4.49 MC/CUMM (3.8-5.5); Red Cell Distribution Width 14.2 % (9.3-17.3); White Blood Count 6.6 T/CUMM (4-12)
[2018-03-03 06:46] LABS: Calcium 9.1 MG/DL (8.5-10.1); Osmolality,Calculated 277.4 MOS/KG (273-304); Potassium 3.7 MMOL/L (3.5-5.1)
[2018-03-03] MEDS: FUROSEMIDE 40 MG/4 ML VIAL IV SCH (09:21)
[2018-03-03] MEDS: SPIRONOLACTONE 25 MG TABLET PO SCH (09:22)
[2018-03-03] MEDS: VALSARTAN 80 MG TABLET PO SCH (09:22)
[2018-03-03] MEDS: ASPIRIN CHEW 81 MG TABLET PO SCH (09:22)
[2018-03-03] MEDS: ENOXAPARIN 40 MG/0.4 ML SYRINGE SUBCUT SCH (09:22)
[2018-03-03] MEDS: CARVEDILOL 6.25 MG TABLET PO SCH (09:22)
[2018-03-03] MEDS: THIAMINE 100 MG TABLET PO SCH (09:22)
[2018-03-03] MEDS: PANTOPRAZOLE 40 MG TABLET PO SCH (09:22)
[2018-03-03] MEDS: DOCUSATE SODIUM 100 MG CAPSULE PO SCH (09:22)
[2018-03-03] MEDS: MAGNESIUM SULF RIDER 2 GM in PREMIX 1 EACH IV PRN (09:23)
[2018-03-03 10:03] VITALS: BP 98/64
== END 2018-03-03 13:45 | disposition home or self-care (01) ==
LOC: N.ED 23:07 → N.EDINP 23:07 → SUATTDRO 03-01 02:27 → N.EDINP 03-01 03:27 → N.5E 03-01 03:40
PROVIDERS: ADMIT Internal Medicine; ATTEND Internal Medicine

== ENCOUNTER 2021-04-02 14:19 | Observation (INO) ==
[2021-04-02] MEDS ORDERED: FUROSEMIDE 40 MG/4 ML VIAL IV STA (15:30)
[2021-04-02 16:25] LABS: Basophils # 0.1 10*3/uL (0.0-0.2); Basophils % 0.9 % (0.0-0.8); Eosinophils # 0.1 10*3/uL (0.0-0.87); Eosinophils % 0.9 % (0.00-10.9); Hematocrit 48.4 VOL% (42.0-52.0); Immature Granulocytes % 0.4 %; Immature Granulocytes Absolute 0.02 #; Lymphocytes # 1.9 10*3/uL (1.4-4.0); Lymphocytes % 33.6 % (21.2-54.2); Mean Corpuscular HGB Conc 33.1 GM/DL (32-36); Mean Corpuscular Volume 88.6 FL (87-102); Mean Platelet Volume 9.6 FL (9.6-12.0); Monocytes % 10.6 % (1.7-12.7); Neutrophils % 53.6 % (38.7-73.9); Platelet Count 266 T/CUMM (130-400); Red Blood Count 5.46 MC/CUMM (3.8-5.5); Red Cell Distribution Width 13.2 % (9.3-17.3); White Blood Count 5.7 T/CUMM (4-12)
[2021-04-02 16:37] LABS: Albumin 3.3 G/DL (3.4-5.0); Bilirubin,Total 1.9 MG/DL (0.2-1.0); Calcium 9.1 MG/DL (8.5-10.1); Osmolality,Calculated 266.4 MOS/KG (273-304); Potassium 3.6 MMOL/L (3.5-5.1); Total Protein 7.2 G/DL (6.4-8.2)
[2021-04-02 16:58] LABS: Bacteria,Urine Occasional /HPF (Few); Bilirubin,Urine Negative (Negative); Blood, Urine Negative (Negative); Glucose,Urine (UA) Negative (Negative); Ketones,Urine Negative (Negative); Mucus,Urine Occasional /LPF (Occasional); Nitrite,Urine Negative (Negative); Protein,Urine 30 MG/DL; RBC,Urine <1 /HPF (0-4); Squamous Epithelial Cell,Urine Occasional /HPF (0-10); Urine Appearance CLEAR (Clear); Urine Color Straw (Yellow); Urine Specific Gravity 1.005 (1.001-1.035); Urine Urobilinogen < 2.0 EU/DL (0.2-1.0)
[2021-04-02] MEDS ORDERED: ONDANSETRON 4 MG/2 ML VIAL IV PRN (18:29)
[2021-04-02] MEDS ORDERED: DEXTROSE 50% 25 GM/50 ML VIAL IV PRN (18:29)
[2021-04-02] MEDS ORDERED: GLUCAGON 1 MG VIAL IM PRN (18:29)
[2021-04-02] MEDS ORDERED: MAGNESIUM SULF RIDER 4 GM/100 ML PREMIX IV PRN (18:41)
[2021-04-02] MEDS ORDERED: MAGNESIUM SULF RIDER 2 GM/50 ML PREMIX IV PRN (18:41)
[2021-04-02 19:25] LABS: Barbiturates Screen,Urine Negative (Negative); Benzodiazepines Screen,Urine Negative (Negative); Cannabinoid Screen,Urine Negative (Negative); Opiate Screen,Urine Negative (Negative); Phencyclidine Screen,Urine Negative (Negative)
[2021-04-02] MEDS: ENOXAPARIN 40 MG/0.4 ML SYRINGE SUBCUT SCH (21:36)
[2021-04-02] MEDS: LORazepam 2 MG/1 ML VIAL IV PRN (21:37)
[2021-04-03 06:33] LABS: Basophils % 0.5 % (0.0-0.8); Eosinophils # 0.1 10*3/uL (0.0-0.87); Eosinophils % 2.2 % (0.00-10.9); Hematocrit 43.9 VOL% (42.0-52.0); Hemoglobin 14.7 GM/DL (14.0-18.0); Immature Granulocytes % 0.5 %; Immature Granulocytes Absolute 0.03 #; Lymphocytes # 2.2 10*3/uL (1.4-4.0); Lymphocytes % 37.3 % (21.2-54.2); Mean Corpuscular HGB Conc 33.5 GM/DL (32-36); Mean Corpuscular Volume 87.3 FL (87-102); Mean Platelet Volume 9.4 FL (9.6-12.0); Monocytes % 11.6 % (1.7-12.7); Neutrophils % 47.9 % (38.7-73.9); Platelet Count 228 T/CUMM (130-400); Red Blood Count 5.03 MC/CUMM (3.8-5.5); Red Cell Distribution Width 13.2 % (9.3-17.3)
[2021-04-03 06:50] LABS: Calcium 8.3 MG/DL (8.5-10.1); Potassium 3.3 MMOL/L (3.5-5.1)
[2021-04-03] MEDS: ASPIRIN CHEW 81 MG TABLET PO SCH (08:15)
[2021-04-03] MEDS: PANTOPRAZOLE 40 MG TABLET PO SCH (08:15)
[2021-04-03] MEDS: FUROSEMIDE 40 MG/4 ML VIAL IV SCH ×2 (08:16→15:15)
[2021-04-03] MEDS: ACETAMINOPHEN 325 MG TABLET PO PRN ×2 (08:20→15:16)
[2021-04-03] MEDS ORDERED: POTASSIUM CHLORIDE 20 MEQ TABLET PO ONE (13:38)
[2021-04-03] MEDS: carvediloL 3.125 MG TABLET PO SCH (14:23)
[2021-04-03] MEDS: ENOXAPARIN 40 MG/0.4 ML SYRINGE SUBCUT SCH (17:32)
[2021-04-03] MEDS: LORazepam 2 MG/1 ML VIAL IV PRN (18:22)
[2021-04-04] MEDS: carvediloL 3.125 MG TABLET PO SCH ×2 (01:24→08:00)
[2021-04-04] MEDS: LORazepam 2 MG/1 ML VIAL IV PRN ×2 (03:39→08:20)
[2021-04-04 05:26] LABS: Basophils % 0.4 % (0.0-0.8); Eosinophils # 0.1 10*3/uL (0.0-0.87); Eosinophils % 2.1 % (0.00-10.9); Hematocrit 42.3 VOL% (42.0-52.0); Hemoglobin 14.1 GM/DL (14.0-18.0); Immature Granulocytes % 0.2 %; Immature Granulocytes Absolute 0.01 #; Lymphocytes # 2.1 10*3/uL (1.4-4.0); Lymphocytes % 37.5 % (21.2-54.2); Mean Corpuscular HGB Conc 33.3 GM/DL (32-36); Mean Corpuscular Volume 87.9 FL (87-102); Mean Platelet Volume 9.6 FL (9.6-12.0); Monocytes % 8.5 % (1.7-12.7); Neutrophils % 51.3 % (38.7-73.9); Platelet Count 235 T/CUMM (130-400); Red Blood Count 4.81 MC/CUMM (3.8-5.5); Red Cell Distribution Width 13.3 % (9.3-17.3); White Blood Count 5.7 T/CUMM (4-12)
[2021-04-04 05:40] LABS: Calcium 8.2 MG/DL (8.5-10.1); Potassium 3.3 MMOL/L (3.5-5.1)
[2021-04-04] MEDS: FUROSEMIDE 40 MG/4 ML VIAL IV SCH (08:00)
[2021-04-04] MEDS: ASPIRIN CHEW 81 MG TABLET PO SCH (08:00)
[2021-04-04] MEDS: PANTOPRAZOLE 40 MG TABLET PO SCH (08:00)
[2021-04-04] MEDS ORDERED: POTASSIUM CHLORIDE 20 MEQ TABLET PO ONE (08:02)
[2021-04-04 08:06] VITALS: BP 104/75
[2021-04-04] MEDS ORDERED: PNEUMOCOCCAL VACCINE (23 VALENT) 0.5 ML VIAL IM ONE (09:00)
[2021-04-04] MEDS ORDERED: FUROSEMIDE 20 MG TABLET PO SCH (09:00)
== END 2021-04-04 12:20 | disposition home or self-care (01) ==
LOC: N.EDINP 14:19 → N.ED 14:19 → SUATTDRO 18:29 → N.5E 19:48
PROVIDERS: ADMIT Phlebology; ATTEND Internal Medicine